=== PATIENT | female | born 1980 | race Caucasian/White ===

== ENCOUNTER 2018-12-17 05:35 | Inpatient (IN) ==
--- OUTSIDE RECORDS SUMMARY | 2018-12-17 05:37 | External Medical Summary | Continuity of Care Document ---
:1980 Author Name Nik Contreras Address Unavailable Unavailable , Care Team Providers Name Role Phone Clara DO Unavailable [email or web address] Unavailable Unavailable Unavailable Unavailable Unavailable Problems Active medical history not documented Allergies and Adverse Reactions Allergy history not documented Medications Medications not documented Procedures Procedures not documented Immunizations Immunizations not documented Plan of Treatment Planned Encounters Appointment; Arturo Elizabeth DO Start: 19-Dec-2018 10:20 Request Planned Observations Planned Goals not documented Results No Known Results Results not documented Encounters Appointment; Arturo Elizabeth DO 19-Dec-2018 10:20 Encounter Diagnosis: Problem not documented
[2018-12-17] MEDS ORDERED: HYDROmorphone INJ 1 MG/ML SYRINGE IV STA (05:48)
[2018-12-17] MEDS ORDERED: ONDANSETRON INJ 2 MG/ML 2 ML VIAL IV STA ×2 (05:48→07:20)
[2018-12-17] MEDS ORDERED: SODIUM CHLORIDE 0.9% 1000ML 1,000 ML IV ONE (05:48)
[2018-12-17 06:07] LABS: Basophils # (auto) 0.01 K/uL (0-0.2); Basophils % (auto) 0.1 %; Eosinophils # (auto) 0.02 K/uL (0-0.5); Eosinophils % (auto) 0.1 %; Hematocrit (blood only) 42.9 % (37-47); Hemoglobin 15.4 g/dL (12.0-16.0); Immature Granulocytes # (auto) 0.04 K/uL (0.00-0.02); Immature Granulocytes % (auto) 0.2 %; Lymphocytes # (auto) 1.44 K/uL (1.2-3.4); Lymphocytes % (auto) 8.8 %; Mean Corpuscular Hgb Conc 35.9 g/dL (32-36); Mean Corpuscular Volume 87.9 fL (80-100); Mean Platelet Volume 11.2 fL (7.4-10.4); Monocytes # (auto) 1.52 K/uL (0.11-0.59); Monocytes % (auto) 9.3 %; Neutrophils # (auto) 13.31 K/uL (1.4-6.5); Neutrophils % (auto) 81.5 %; Platelet Count 201 K/uL (130-400); RDW Coefficient of Variation 12.7 % (11.5-14.5); RDW Standard Deviation 40.7 fL (36.4-46.3); Red Blood Count 4.88 M/uL (4.2-5.4); White Blood Count 16.34 K/uL (4.8-10.8)
[2018-12-17 06:27] LABS: Albumin Level 3.8 gm/dl (3.4-5.0); BUN Creatinine Ratio 9.7 (10-20); Bilirubin,Total 1.4 mg/dl (0.2-1); Calcium 9.2 mg/dl (8.5-10.1); Potassium 3.9 mmol/L (3.5-5.1); Total Protein 8.1 gm/dl (6.4-8.2)
[2018-12-17 06:41] LABS: Creatinine Clr Calc Pharmacy 97.9 ml/min; Est GFR (African American) 95.9; Est GFR (Non-African American) 82.8
[2018-12-17] MEDS ORDERED: cefOXitin 2,000 MG/60 ML BAG IV STA (07:03)
[2018-12-17] MEDS ORDERED: HYDROmorphone INJ 1 MG/ML SYRINGE IV PRN (07:04)
--- NOTE | 2018-12-17 07:09 | Ultrasound Report ---
US gallbladder CLINICAL HISTORY: RUQ pain, known gallstone at neck, worsening COMPARISON STUDY: CT of the abdomen and pelvis December 12, 2013. Right upper quadrant ultrasound November 302018. FINDINGS: Fatty infiltration of the liver is noted. There is no biliary ductal dilatation. A nonmobil e gallstone within the gallbladder neck is noted. Moderate to marked gallbladder wall thickening with edema has developed since exam of December 15, 2018. The gallbladder is moderately distended. Echogenic focus with comet tail artifact within the gallbladder wall suggests adenomyomatosis. Given pain medic ation administration, sonographic Benavidez sign could not be assessed. The pancreas is appeared by over lying bowel gas. IMPRESSION: 1. Cholelithiasis with interval development of moderate to marked gallbladder wall thickening since u ltrasound of December 15, 2017. The findings are highly suggestive of acute cholecystitis. 2. No biliary ductal dilatation. 3. Fatty liver. Electronically signed by: John Castro M.D. 12/17/2018 7:08 AM
--- NOTE | 2018-12-17 07:26 | Emergency Department Note ---
Entered by Rajiv Bee acting as a scribe for ED Provider Note Name: Aditya Lyon Age: 38, female Arrives Via: Walk in Informant: Patient CC: Abdominal pain HPI: The patient is a 38 year old female who presents to the emergency department with complaints of constant abdominal pain beginning two days ago. The patient states that she was in the emergency department two days ago for similar symptoms. She notes that she had a stone stuck in her gallbladder at that time. She reports that her symptoms have not resolved. The patient states that her pain is worse in her upper abdomen, but she notes that she has some mild pain in her lower abdomen. She also complains of diaphoresis and vomiting. She denies any leg swelling, urinary symptoms, CP, and SOB. She reports that she has not had any previous surgeries and she states that she does not have a family history of stomach ulcers and pancreas problems. She notes that she does not smoke cigarettes, drink alcohol, and use drugs. ROS: See above HPI for pertinent positives & negatives. A total of 10 systems reviewed and were otherwise negative. Past Medical History: Cholelithiasis, kidney stone Past Surgical History: None Family History: No significant family history Social History: , lives with family, does not use drugs, does not smoke cigarettes, does not drink alcohol Home Medications: Mirena, Zofran, Oxycodone Allergies: None Physical: Vitals: BP 216/130 H, Pulse 87, Resp 16, Temp 98.6 F, O2 Sat 96 Exam: GENERAL: Patient is uncomfortable appearing and in moderate distress. EYES: No scleral icterus, unremarkable pupils. ENT: Mucous membranes moist, no nasal congestion. NECK: No masses appreciated, no meningismus, trachea is midline. RESPIRATORY: No dyspnea. Clear to auscultation and equal bilaterally. No wheeze, no rhonchi. Breathing comfortably. CARDIOVASCULAR: Regular rate and rhythm. No murmurs, rubs, gallops appreciated. GASTROINTESTINAL: Abdomen soft, no peritonitis. Bowel sounds positive. No masses appreciated. Acute epigastric RUQ tenderness to palpation. BACK: No midline tenderness, no CVA tenderness EXTREMITIES: Normal motion all extremities, no cyanosis, no edema. NEUROLOGIC: Alert and oriented, no acute motor or sensory deficits, no focal weakness, cranial nerves grossly intact. SKIN: No rash, no jaundice, no diaphoresis. ED Course: Prior Medical Record, Triage/Nursing Notes, Medications, Allergies reviewed by Me 0544: The patient was evaluated in room B2. A complete history and physical exam was performed. 0618: I reevaluated and updated the patient. She is starting to feel better. 0655: General surgery was paged. 0700: Upon reevaluation, the patient is stable. I discussed the findings and the treatment plan with the patient. She expresses agreement and understanding. I discussed the patients case with the PA recreation program coordinator for General Surgery who accepts the patient for consult for Dr. Schwartz. Vital Signs: reviewed and remarkable for HTN Labs: Reviewed and remarkable for wbc elevation, bili elevation Interventions: Saline Lock, Dilaudid 1mg IV, Zofran 4mg IV, NSS bolus, NPO, Mefoxin 2 gm IV Imaging: Radiology results as stated below per my review and the radiologist's interpretation: US gallbladder FINDINGS: Fatty infiltration of the liver is noted. There is no biliary ductal dilatation. A nonmobile gallstone within the gallbladder neck is noted. Moderate to marked gallbladder wall thickening with edema has developed since exam of December 15, 2018. The gallbladder is moderately distended. Echogenic focus with co met tail artifact within the gallbladder wall suggests adenomyomatosis. Given pain medication administration, sonographic Benavidez sign could not be assessed. The pancreas is appeared by overlying bowel gas. IMPRESSION: 1. Cholelithiasis with interval development of moderate to marked gallbladder wall thickening since ultrasound of December 15, 2017. The findings are highly suggestive of acute cholecystitis. 2. No biliary ductal dilatation. 3. Fatty liver. Electronically signed by: John Castro M.D. 12/17/2018 7:08 AM Consults: 0700: I discussed the patients case with the PA recreation program coordinator for General Surgery who accepts the patient for consult for Dr. Schwartz. Blood pressure: Elevated - Referred to PCP Disposition: Taken to OR by Gen Surg Differentials: Differential: Appendicitis, Diverticulitis, PUD/Gastritis, Biliary Pathology, UTI, Pyelonephritis, Renal Colic, Bowel Obstruction, Aortic Pathology, Acute Coronary Syndrome, amongst other pathologies entertained. Medical Decision Makin yr old female with acute cholecystitis secondary to obstructing neck stone. Moderate wbc/bili bump without significant hepatic function elevation. Not septic and otherwise looking well. Feeling much better after pain medications. Fluids given IV and kept NPO. Gen Surg on board. Impression: Acute cholecystitis Harman Stark MD The scribe's documentation has been prepared under my direction and personally reviewed by me in its entirety. I confirm that the note above accurately reflects all work, treatment, procedures, and medical decision making performed by me. Impression & Plan Acute cholecystitis Past Med/Surg History Medical History Right upper quadrant abdominal pain (Acute) Cholelithiasis (Acute) Abdominal pain (Acute) Kidney stone (Acute) Surgical History No pertinent past surgical history Family History Other No significant family history Social History Preferred Language: Faroese Communication Ability: Effective Beliefs That Will Affect Care: None marital status: Current Living Situation: Spouse and Family current occupational status: employed Feels Safe at Home: Yes Smoking Status: Never smoker Second Hand Exposure: No Hx Alcohol Use: No Hx Substance Use: No Results & Data Vital Signs Vital Signs - 24 hr 12/17/18 05:39 12/17/18 06:02 12/17/18 06:21 Temperature 37.0 C Temperature Source Oral Sepsis Recent Fever Within 48 Hours No Sepsis Action Taken by Nursing No Action Required Pulse Rate 102 H Pulse Rate [Right Finger] 87 89 Pulse Rhythm [Right Finger] Regular Pulse Strength [Right Finger] Normal Respiratory Rate 18 16 16 Respiratory Effort / Characteristics Non-Labored Spontaneous Non-Labored Respiratory Depth Normal Normal Respiratory Pattern Regular Regular Blood Pressure 166/110 H Blood Pressure [Right Arm] 216/130 H 169/112 H Blood Pressure Mean 128 Blood Pressure Mean [Right Arm] 158 131 Blood Pressure Position Sitting Blood Pressure Position [Right Arm] Lying Pulse Oximetry 96 96 93 Oxygen Delivery Method Room Air Room Air Room Air Home Medications Current Medication List: was personally reviewed by me Laboratory Data Attestation: I reviewed the patient's lab results. Result diagrams: 12/20/18 06:40 12/20/18 06:40 Lab Results 12/17/18 12/17/18 Range/Units 05:54 05:54 WBC 16.34 H (4.8-10.8) K/uL RBC 4.88 (4.2-5.4) M/uL Hgb 15.4 (12.0-16.0) g/dL Hct 42.9 (37-47) % MCV 87.9 (80-100) fL MCH 31.6 (25-34) pg MCHC 35.9 (32-36) g/dL RDW Std Deviation 40.7 (36.4-46.3) fL RDW Coeff of Maral 12.7 (11.5-14.5) % Plt Count 201 (130-400) K/uL MPV 11.2 H (7.4-10.4) fL Immature Gran % (Auto) 0.2 % Neut % (Auto) 81.5 % Lymph % (Auto) 8.8 % [place] % (Auto) 9.3 % Eos % (Auto) 0.1 % Baso % (Auto) 0.1 % Immature Gran # (Auto) 0.04 H (0.00-0.02) K/uL Neut # (Auto) 13.31 H (1.4-6.5) K/uL Lymph # (Auto) 1.44 (1.2-3.4) K/uL [place] # (Auto) 1.52 H (0.11-0.59) K/uL Eos # (Auto) 0.02 (0-0.5) K/uL Baso # (Auto) 0.01 (0-0.2) K/uL Sodium 134 L (136-145) mmol/L Potassium 3.9 (3.5-5.1) mmol/L Chloride 100 (98-107) mmol/L Carbon Dioxide 25 (21-32) mmol/L Anion Gap 9.0 (3-11) BUN 9 (7-18) mg/dl Creatinine 0.88 (0.6-1.2) mg/dl Est Cr Clr Drug Dosing 97.9 ml/min Est GFR ( Amer) 95.9 Est GFR (Non-Af Amer) 82.8 BUN/Creatinine Ratio 9.7 L (10-20) Glucose 135 H (70-99) mg/dl Calcium 9.2 (8.5-10.1) mg/dl Total Bilirubin 1.4 H D (0.2-1) mg/dl Direct Bilirubin (0-0.2) mg/dl AST 24 (15-37) U/L ALT 35 (12-78) U/L Alkaline Phosphatase 62 (45-117) U/L Total Protein 8.1 (6.4-8.2) gm/dl Albumin 3.8 (3.4-5.0) gm/dl Lipase 180 (73-393) U/L Specimen Hemolysis Administered Medications Discontinued Medications Bacitracin (Bacitracin) Confirm Administered Dose 45 appln .ROUTE .[employer] ONE Stop: 12/18/18 06:55 Last Admin: 12/18/18 10:51 Dose: 45 appln Documented by: [id number] Bupivacaine HCl (Marcaine 0.5% Mpf) Confirm Administered Dose 30 ml .ROUTE .[employer] ONE Stop: 12/18/18 06:56 Last Admin: 12/18/18 10:52 Dose: 20 ml Documented by: [id number] Cefazolin Sodium (Ancef 2000mg) Confirm Administered Dose 2,000 mg IV .[employer] ONE Stop: 12/18/18 06:57 Last Admin: 12/18/18 11:50 Dose: Not Given Documented by: [id number] Docusate Sodium (Colace) 100 mg PO BID VIC Stop: 01/18/19 10:14 Last Admin: 12/20/18 08:06 Dose: 100 mg Documented by: [id number] Admin: 12/19/18 20:33 Dose: 100 mg Documented by: [id number] Admin: 12/19/18 11:02 Dose: 100 mg Documented by: [id number] Fentanyl Citrate (Fentanyl Citrate) 50 mcg IV Q5M PRN PRN Reason: PACU Use Only-Pain Stop: 12/18/18 12:47 Last Admin: 12/18/18 11:22 Dose: 50 mcg Documented by: [id number] Admin: 12/18/18 11:17 Dose: 50 mcg Documented by: [id number] Hydralazine HCl (Hydralazine Hcl) 10 mg IV NOW STA Stop: 12/17/18 13:39 Last Admin: 12/17/18 13:59 Dose: 10 mg Documented by: [id number] Hydromorphone HCl (Dilaudid) 1 mg IV NOW STA Stop: 12/17/18 05:49 Last Admin: 12/17/18 06:01 Dose: 1 mg Documented by: [id number] Hydromorphone HCl (Dilaudid) 1 mg IV Q15M PRN PRN Reason: Pain Stop: 12/31/18 07:03 Last Admin: 12/17/18 07:28 Dose: 1 mg Documented by: [id number] Sodium Chloride (Nss 1000ml) 1,000 mls @ 999 mls/hr IV .Q1H1M ONE Stop: 12/17/18 06:48 Last Infusion: 12/17/18 07:04 Dose: 0 mls/hr Documented by: [id number] Admin: 12/17/18 06:01 Dose: 999 mls/hr Documented by: [id number] Cefoxitin Sodium (Mefoxin) 2,000 mg in 60 mls @ 100 mls/hr IV NOW [facility] Stop: 12/17/18 07:38 Last Infusion: 12/17/18 08:01 Dose: 0 mls/hr Documented by: [id number] Admin: 12/17/18 07:28 Dose: 100 mls/hr Documented by: [id number] Cefoxitin Sodium 2,000 mg/ (Dextrose) 60 mls @ 100 mls/hr IV Q6H [facility] Stop: 12/27/18 13:59 Last Admin: 12/18/18 11:50 Dose: Not Given Documented by: [id number] Infusion: 12/18/18 02:18 Dose: 0 mls/hr Documented by: [id number] Admin: 12/18/18 01:31 Dose: 100 mls/hr Documented by: [id number] Infusion: 12/17/18 21:50 Dose: 0 mls/hr Documented by: [id number] Admin: 12/17/18 20:51 Dose: 100 mls/hr Documented by: [id number] Infusion: 12/17/18 16:27 Dose: 0 mls/hr Documented by: [id number] Admin: 12/17/18 14:05 Dose: 100 mls/hr Documented by: [id number] Sodium Chloride (Nss 1000ml) 1,000 mls @ 80 mls/hr IV .[id number] [facility] Stop: 01/16/19 08:14 Last Infusion: 12/17/18 20:52 Dose: 0 mls/hr Documented by: [id number] Admin: 12/17/18 18:36 Dose: 80 mls/hr Documented by: [id number] Infusion: 12/17/18 17:56 Dose: 125 mls/hr Documented by: [id number] Admin: 12/17/18 09:56 Dose: 125 mls/hr Documented by: [id number] Dextrose/Sodium Chloride (D5w And Nss) 1,000 mls @ 80 mls/hr IV .[id number] VIC Stop: 01/16/19 20:29 Last Infusion: 12/19/18 09:08 Dose: 0 mls/hr Documented by: [id number] Admin: 12/18/18 23:31 Dose: 80 mls/hr Documented by: [id number] Infusion: 12/18/18 23:31 Dose: 80 mls/hr Documented by: [id number] Infusion: 12/18/18 22:43 Dose: 80 mls/hr Documented by: [id number] Admin: 12/18/18 12:08 Dose: 80 mls/hr Documented by: [id number] Infusion: 12/18/18 09:22 Dose: 80 mls/hr Documented by: [id number] Admin: 12/17/18 20:52 Dose: 80 mls/hr Documented by: [id number] Cefazolin Sodium (Ancef 2000mg) 2,000 mg in 15 mls @ 3.75 mls/min IV PREOP ONE Stop: 12/18/18 06:53 Last Admin: 12/18/18 07:14 Dose: 3.75 mls/min Documented by: [id number] Piperacillin Sod/Tazobactam (Sod 4.5 gm/ Dextrose) 120 mls @ 200 mls/hr IV TODA Y@1330 ONE; Protocol Stop: 12/18/18 14:05 Last Infusion: 12/18/18 16:35 Dose: 0 mls/hr Documented by: [id number] Admin: 12/18/18 14:36 Dose: 200 mls/hr Documented by: [id number] Piperacillin Sod/Tazobactam (Sod 4.5 gm/ Dextrose) 120 mls @ 30 mls/hr IV Q8H [facility]; Protocol Stop: 12/28/18 19:59 Last Infusion: 12/20/18 08:14 Dose: 0 mls/hr Documented by: [id number] Admin: 12/20/18 04:11 Dose: 30 mls/hr Documented by: [id number] Infusion: 12/20/18 00:38 Dose: 0 mls/hr Documented by: [id number] Admin: 12/19/18 20:32 Dose: 30 mls/hr Documented by: [id number] Infusion: 12/19/18 16:15 Dose: 0 mls/hr Documented by: [id number] Admin: 12/19/18 12:29 Dose: 30 mls/hr Documented by: [id number] Infusion: 12/19/18 08:16 Dose: 0 mls/hr Documented by: [id number] Admin: 12/19/18 04:13 Dose: 30 mls/hr Documented by: [id number] Infusion: 12/19/18 00:23 Dose: 0 mls/hr Documented by: [id number] Admin: 12/18/18 20:21 Dose: 30 mls/hr Documented by: [id number] Iothalamate Meglumine ([place] 60%) Confirm Administered Dose 50 ml .ROUTE .STK- MED ONE Stop: 12/18/18 06:56 Last Admin: 12/18/18 10:51 Dose: 20 ml Documented by: [id number] Lidocaine HCl (Xylocaine 1% (Local)) Confirm Administered Dose 20 ml .ROUTE .STK-MED ONE Stop: 12/18/18 06:56 Last Admin: 12/18/18 10:53 Dose: 20 ml Documented by: [id number] Metoprolol Tartrate (Lopressor) 25 mg PO BID [facility] Stop: 01/16/19 14:59 Last Admin: 12/17/18 16:51 Dose: 25 mg Documented by: [id number] Metoprolol Tartrate (Lopressor) 50 mg PO Q8H [facility] Stop: 01/16/19 20:59 Last Admin: 12/18/18 12:49 Dose: 50 mg Documented by: [id number] Admin: 12/18/18 05:19 Dose: 50 mg Documented by: [id number] Admin: 12/17/18 21:10 Dose: 50 mg Documented by: [id number] Metoprolol Tartrate (Lopressor) 50 mg PO Q12H [facility] Stop: 01/17/19 20:59 Last Admin: 12/19/18 08:54 Dose: 50 mg Documented by: [id number] Admin: 12/18/18 20:22 Dose: 50 mg Documented by: [id number] Metoprolol Tartrate (Lopressor) 25 mg PO ONCE ONE Stop: 12/19/18 12:46 Last Admin: 12/19/18 13:21 Dose: 25 mg Documented by: [id number] Metoprolol Tartrate (Lopressor) 75 mg PO Q12H [facility] Stop: 01/18/19 20:59 Last Admin: 12/20/18 08:07 Dose: 75 mg Documented by: [id number] Admin: 12/19/18 20:56 Dose: 75 mg Documented by: [id number] Morphine Sulfate (Morphine Sulfate) 2 mg IV Q3H PRN PRN Reason: MODERATE Pain (Scale 4,5,6) Stop: 12/31/18 08:10 Last Admin: 12/19/18 20:46 Dose: 2 mg Documented by: [id number] Admin: 12/18/18 18:56 Dose: 2 mg Documented by: [id number] Admin: 12/18/18 12:48 Dose: 2 mg Documented by: [id number] Morphine Sulfate (Morphine Sulfate) 4 mg IV Q3H PRN PRN Reason: SEVERE Pain (Scale 7,8,9,10) Stop: 12/31/18 08:10 Last Admin: 12/17/18 09:50 Dose: 4 mg Documented by: [id number] Ondansetron HCl (Zofran) 4 mg IV NOW STA Stop: 12/17/18 05:49 Last Admin: 12/17/18 06:01 Dose: 4 mg Documented by: [id number] Ondansetron HCl (Zofran) 4 mg IV NOW STA Stop: 12/17/18 07:21 Last Admin: 12/17/18 07:26 Dose: 4 mg Documented by: [id number] Ondansetron HCl (Zofran) 4 mg IV Q4H PRN PRN Reason: Nausea And Vomiting Stop: 01/16/19 08:10 Last Admin: 12/17/18 21:09 Dose: 4 mg Documented by: [id number] Admin: 12/17/18 16:42 Dose: 4 mg Documented by: [id number] Admin: 12/17/18 09:48 Dose: 4 mg Documented by: [id number] Oxycodone/Acetaminophen (Percocet 5mg/325mg) 1 tab PO Q4H PRN PRN Reason: MODERATE Pain (Scale 4,5,6) Stop: 12/31/18 08:10 Last Admin: 12/20/18 09:47 Dose: 1 tab Documented by: [id number] Oxycodone/Acetaminophen (Percocet 5mg/325mg) 2 tab PO Q4H PRN PRN Reason: SEVERE Pain (Scale 7,8,9,10) Stop: 12/31/18 08:10 Last Admin: 12/20/18 04:10 Dose: 2 tab Documented by: [id number] Admin: 12/19/18 20:04 Dose: 2 tab Documented by: [id number] Admin: 12/19/18 14:40 Dose: 2 tab Documented by: [id number] Admin: 12/19/18 08:52 Dose: 2 tab Documented by: [id number] Admin: 12/19/18 03:02 Dose: 2 tab Documented by: [id number] Admin: 12/18/18 21:10 Dose: 2 tab Documented by: [id number] Admin: 12/18/18 16:44 Dose: 2 tab Documented by: [id number] Admin: 12/17/18 23:51 Dose: 2 tab Documented by: [id number] Admin: 12/17/18 17:50 Dose: 2 tab Documented by: [id number] Potassium Chloride (Klor-Con M20) 40 meq PO NOW STA Stop: 12/19/18 08:28 Last Admin: 12/19/18 08:54 Dose: 40 meq Documented by: [id number] Potassium Chloride (Klor-Con M20) 40 meq PO NOW STA Stop: 12/20/18 08:13 Last Admin: 12/20/18 09:21 Dose: 40 meq Documented by: [id number] Scopolamine (Transderm-Scop) Confirm Administered Dose 1.5 mg .ROUTE .STK-MED ONE Stop: 12/18/18 06:57 Last Admin: 12/18/18 06:59 Dose: 1.5 mg Documented by: [id number] Triamcinolone Acetonide (Aristocort 0.1%) 1 appln EXT TID VIC Stop: 01/17/19 13:59 Last Admin: 12/20/18 08:07 Dose: 1 appln Documented by: [id number] Admin: 12/19/18 20:33 Dose: 1 appln Documented by: [id number] Admin: 12/19/18 13:21 Dose: 1 appln Documented by: [id number] Admin: 12/19/18 08:54 Dose: 1 appln Documented by: [id number] Admin: 12/18/18 20:22 Dose: 1 appln Documented by: [id number] Admin: 12/18/18 14:36 Dose: Not Given Documented by: [id number] Discharge Plan Visit Data *Final* Discharge Date/Time: 12/17/18 09:14 Chief Complaint: Abdominal Pain Stated Complaint: STOMACH PAIN,VOMITING,GALLBLADDER ED Provider: Harman Stark Discharge Problem: Acute cholecystitis Patient Disposition: Admitted As Inpatient Discharge Instructions Interventions: ED Discharge Assessment Last Done: 12/17/18 09:14 The scribe's documentation has been prepared under my direction and personally reviewed by me in its entirety. I confirm that the note above accurately reflects all work, treatment, procedures, and medical decision making performed by me.
[2018-12-17] MEDS ORDERED: MoRPHine SULFATE 4 MG/ML 1 ML CARP\\VIAL IV PRN (08:11)
[2018-12-17] MEDS ORDERED: OXYCODONE/ACETAMINOPHEN 5mg/325mg TAB PO PRN (08:11)
[2018-12-17] MEDS ORDERED: MoRPHine SULFATE 2 MG/ML CARP IV PRN (08:11)
[2018-12-17] MEDS ORDERED: ACETAMINOPHEN 325 MG TAB PO PRN (08:11)
--- NOTE | 2018-12-17 08:40 | History & Physical Report ---
Date of Service December 17, 2018 Assessment & Plan (1) Acute calculous cholecystitis: 38 year-old female with history of 4 days of abdominal pain with associated nausea and vomiting (x1) who presented to ER on 12/15/18 and was diagnosed with gallstone in gallbladder neck however no signs of acute cholecystitis at the time. She presented to ER today with increasing pain. Repeat US showing nonmobile stone in neck of gallbladder with wall thickening and edema concerning for acute cholecystitis. Leukocytosis of 16K. T bili elevated at 1.4. Rest of LFTS wnl. Plan: Admit patient to med/surg floor and start IV fluids, IV Cefoxitin 2 gm q 6 hours, IV Zofran prn nausea, IV Morphine prn pain, SCDs, activity as tolerated, and kept NPO. Will repeat labs in morning, if rise in t. bili will need GI consult for possible ERCP. Will tentatively schedule for laparoscopic cholecystectomy tomorrow with Dr. Schwartz. Discussed laparoscopic procedure and risks including bleeding, infection, injury to common bile duct, bile leak, injury to surrounding organs tissues, cardiopulmonary complications including blood clots. Will gain informed consent prior to procedure Dr. Schwartz has seen and examined pt, agrees with above. History of Present Illness Chief Complaint: abdominal pain with nausea Primary Care Provider: NO PCP Aditya is a pleasant 38 year-old female who originally presented to emergency department on 12/15/18 with abdominal pain , nausea, and vomiting that started two days prior. States she missed work two days last week because of the pain. Originally thought she had gas pains but pain persisted. She had an ultrasound on 12/15/18 which showed 3 cm stone at gallbladder neck but no other signs of acute cholecystitis. She was given pain medication and tried to get through for scheduling outpatient cholecystectomy. States in the last two days pain increased. Appetite low. Feeling bloated. Urine output dark yellow. Denies of any fever, chills, sweats, chest pain, shortness of breath, difficulty breathing, diarrhea, black/tarry stools, blood in stools, blood in urine. ER work-up included labs which showed leukocytosis of 16.34K, elevated t. bili at 1.4 rest of LFTS wnl. US showing 3 cm gallbladder neck stone which is nonmobile with gallbladder wall thickening and pericholecystic fluid. She has had some IV Dilaudid for pain. Pain was 9/10 on presentation and is feeling much better now after pain medication. Allergies Allergy/AdvReac Type Severity Reaction Status Date / Time No Known Allergies Allergy Unknown Verified 12/17/18 05:51 Home Medications Home Medications Medication Instructions Recorded Confirmed Type levonorgestrel [Mirena] 20 mcg INTRAUTERINE ONCE 12/15/18 12/17/18 History ondansetron HCl [Zofran] 4 mg PO Q6H PRN #14 tab 12/15/18 12/17/18 Rx oxycodone 5 mg PO Q6H PRN #14 tab 12/15/18 12/17/18 Rx Past Med/Surg History Social History Preferred Language: [place] Communication Ability: Effective Hand Molder Required: No Beliefs That Will Affect Care: None marital status: Current Living Situation: Spouse and Family current occupational status: employed Other Information That Helps Us Care for You: No Feels Safe at Home: Yes Safety Concerns: Feels Safe At This Time Smoking Status: Never smoker Do You Dip or Chew Tobacco: No Second Hand Exposure: No Tobacco Cessation Education Requested by Patient: No Hx Alcohol Use: No Hx Substance Use: No Review of Systems Review of Systems: All systems reviewed & are unremarkable except as noted in HPI & below Physical Exam Constitutional: WD/WN, vitals as above + obese; no acute distress and not ill appearing Respiratory: normal respiratory effort, lungs clear to auscultation Cardiovascular: Rate/Rhythm: regular rhythm and + tachycardic Heart Sounds: normal S1 and normal S2; no murmur Gastrointestinal (Abdomen): Inspection/Auscultation: abdomen normal to inspection; abdomen not distended Percussion/Palpation: + abdomen tender (RUQ) and abdomen soft; no guarding and abdomen not rigid Skin: + rash (patches of erythema of the abdomen and the elbows) Psychiatric: A+Ox3, euthymic affect Results & Data Vital Signs (Past 12 Hours) Vital Signs Temp Pulse Pulse Resp BP BP Pulse Ox 12/17/18 06:21 89 16 169/112 H 93 12/17/18 06:02 87 16 216/130 H 96 12/17/18 05:39 37.0 C 102 H 18 166/110 H 96 Laboratory Results 12/17/18 12/17/18 Range/Units 05:54 05:54 WBC 16.34 H (4.8-10.8) K/uL RBC 4.88 (4.2-5.4) M/uL Hgb 15.4 (12.0-16.0) g/dL Hct 42.9 (37-47) % MCV 87.9 (80-100) fL MCH 31.6 (25-34) pg MCHC 35.9 (32-36) g/dL RDW Std Deviation 40.7 (36.4-46.3) fL RDW Coeff of Maral 12.7 (11.5-14.5) % Plt Count 201 (130-400) K/uL MPV 11.2 H (7.4-10.4) fL Immature Gran % (Auto) 0.2 % Neut % (Auto) 81.5 % Lymph % (Auto) 8.8 % [place] % (Auto) 9.3 % Eos % (Auto) 0.1 % Baso % (Auto) 0.1 % Immature Gran # (Auto) 0.04 H (0.00-0.02) K/uL Neut # (Auto) 13.31 H (1.4-6.5) K/uL Lymph # (Auto) 1.44 (1.2-3.4) K/uL [place] # (Auto) 1.52 H (0.11-0.59) K/uL Eos # (Auto) 0.02 (0-0.5) K/uL Baso # (Auto) 0.01 (0-0.2) K/uL Sodium 134 L (136-145) mmol/L Potassium 3.9 (3.5-5.1) mmol/L Chloride 100 (98-107) mmol/L Carbon Dioxide 25 (21-32) mmol/L Anion Gap 9.0 (3-11) BUN 9 (7-18) mg/dl Creatinine 0.88 (0.6-1.2) mg/dl Est Cr Clr Drug Dosing 97.9 ml/min Est GFR ( Amer) 95.9 Est GFR (Non-Af Amer) 82.8 BUN/Creatinine Ratio 9.7 L (10-20) Glucose 135 H (70-99) mg/dl Calcium 9.2 (8.5-10.1) mg/dl Total Bilirubin 1.4 H D (0.2-1) mg/dl Direct Bilirubin (0-0.2) mg/dl AST 24 (15-37) U/L ALT 35 (12-78) U/L Alkaline Phosphatase 62 (45-117) U/L Total Protein 8.1 (6.4-8.2) gm/dl Albumin 3.8 (3.4-5.0) gm/dl Lipase 180 (73-393) U/L Specimen Hemolysis Diagnostic Findings US gallbladder CLINICAL HISTORY: RUQ pain, known gallstone at neck, worsening COMPARISON STUDY: CT of the abdomen and pelvis December 12, 2013. Right upper quadrant ultrasound December 15, 2018. FINDINGS: Fatty infiltration of the liver is noted. There is no biliary ductal dilatation. A nonmobile gallstone within the gallbladder neck is noted. Moderate to marked gallbladder wall thickening with edema has developed since exam of J une 2018. The gallbladder is moderately distended. Echogenic focus with comet tail artifact within the gallbladder wall suggests adenomyomatosis. Given pain medication administration, sonographic Benavidez sign could not be assessed. The pancreas is appeared by overlying bowel gas. IMPRESSION: 1. Cholelithiasis with interval development of moderate to marked gallbladder wall thickening since ultrasound of December 15, 2017. The findings are highly suggestive of acute cholecystitis. 2. No biliary ductal dilatation. 3. Fatty liver. Code Status & VTE Plan VTE Prophylaxis Plan VTE Prophylaxis will be ordered: Yes
[2018-12-17] MEDS: ONDANSETRON INJ 2 MG/ML 2 ML VIAL IV PRN ×3 (09:48→21:09)
[2018-12-17] MEDS: SODIUM CHLORIDE 0.9% 1000ML 1,000 ML IV SCH ×2 (09:56→18:36)
[2018-12-17] MEDS ORDERED: HydrALAZINE HCL 20 MG/ML VIAL IV STA (13:38)
[2018-12-17] MEDS: cefOXitin 2,000 MG in DEXTROSE 5% 50 ML IV SCH ×2 (14:05→20:51)
[2018-12-17] MEDS ORDERED: PROCHLORPERAZINE 10 MG in SYRINGE 8 ML IV PRN (14:42)
[2018-12-17] MEDS ORDERED: METOPROLOL TARTRATE 25 MG TAB PO SCH (15:00)
--- NOTE | 2018-12-17 16:01 | Hospitalist Consultation ---
Date of Consultation December 17, 2018 Assessment & Plan (1) Acute calculous cholecystitis: - Admitted to gen surg for lap yuri on 12/18/18. - Pain & nausea management per primary team. - Cefoxitin 2 gm IV q6hr for empiric coverage. - NPO except meds; IV fluids at 80 cc/hr. (2) Elevated blood pressure reading: - BP has been elevated since admission -- ranging from 160's - 200's. - May have underlying component of HTN (has not been evaluated by PCP in 5 years) vs. partially pain induced. - Received Hydralazine 10 mg IV with mild improvement. - Start Metoprolol 25 mg BID; consider titrating dose. - Will need f/u with PCP after discharge to determine if pt. needs to start alf anti-hypertensive agent. (3) Leukocytosis: - Related to acute cholecystitis. - Monitor CBC qAM. (4) Elevated bilirubin: - In setting of acute cholecystitis. - Monitor qAM. (5) Fatty liver: - Encourage healthy diet, exercise. (6) Obesity: - BMI 42.5 -- encourage weight loss and healthy diet. (7) DVT prophylaxis: - SCDs; holding pharmacologic ppx for procedure. Dispo: Med/surg for lap yuri; will continue to follow, please call with any questions. Supervising Physician Co-Signing Physician Notes Attending Consult Note & Attestation - Pt seen/examined, chart reviewed, care plan d/w DESHAWN Weeks. I agree w/ the guerrero components of her documentation. 38yo female who presented with acute cholecystitis. Noted to have marked BP elevations at presentation. No formal dx of HTN in the past. Father has HTN. Prior to my arrival Ms Weeks & I discussed her BPs - metoprolol PO started and BPs indeed improved. PMH, PSH, allergies, meds, sochx, famhx, ros - reviewed gen- mildly uncomfortable due to pain; morbidly obese, ill-appearing mouth - MM dry heart - RRR, s1 s2 lungs - CTA b/l abd - soft, tender RUQ, BS+ ext - no edema skin - psoriatic plaques A/P: 1. acute cholecystitis - continue IV antibiotics; gen surg to perform lap yuri tomorrow. 2. elevated BP w/o dx of HTN - some of the BP elevation may be from pain, but suspect undiagnosed baseline essential HTN. Cont metoprolol - titrate to keep SBP about 150-160 tonight. 3. psoriasis - steroid ointment. Feliciano Martell MD History of Present Illness Reason for Consultation: Medical Management Attending Physician: Colin Schwartz MD History of Present Illness Ms. Coffman is a 38 year old female with no significant past medical history who presented with acute cholecystitis. Pt. has not been evaluated by a PCP in >5 years and does not have a documented medical history. Currently, patient complains of epigastric and RUQ abd pain along with nausea. She cannot take PO meds and has had limited PO intake due to nausea. Is having regular BMs. BP was elevated, SBP >200 at one point. She received Hydralazine 10 mg IV with some improvement. Pt. denies h/o HTN. Will start Metoprolol 25 mg BID -- may have underlying component of HTN vs. partially pain induced. Allergies Allergy/AdvReac Type Severity Reaction Status Date / Time No Known Allergies Allergy Unknown Verified 12/17/18 05:51 Home Medications Home Medications Medication Instructions Recorded Confirmed Type Mirena 20 mcg INTRAUTERINE ONCE 12/15/18 12/17/18 History ondansetron HCl [Zofran] 4 mg PO Q6H PRN #14 tab 12/15/18 12/17/18 Rx ciprofloxacin HCl [Cipro] 500 mg PO BID #14 tab 12/19/18 Rx metronidazole [Flagyl] 500 mg PO TID #21 tab 12/19/18 Rx oxycodone-acetaminophen 1 tab PO Q4H PRN #18 tab 12/19/18 Rx metoprolol tartrate 75 mg PO BID #30 tab 12/20/18 Rx Patient History Medical History Right upper quadrant abdominal pain (Acute) Cholelithiasis (Acute) Abdominal pain (Acute) Kidney stone (Acute) Surgical History No pertinent past surgical history Family History Other No significant family history Social History Preferred Language: Romanian Communication Ability: Effective Beliefs That Will Affect Care: None marital status: Current Living Situation: Spouse and Family current occupational status: employed Feels Safe at Home: Yes Smoking Status: Never smoker Second Hand Exposure: No Hx Alcohol Use: No Hx Substance Use: No Review of Systems Review of Systems: All systems reviewed & are unremarkable except as noted in HPI & below Constitutional: + fatigue, + weakness and + anorexia; no fever and no chills Respiratory: no cough, no dyspnea, no dyspnea on exertion and no wheezing Cardiovascular: no chest pain, no palpitations, no lightheadedness and no edema Gastrointestinal: + abdominal pain and + nausea; no vomiting, no constipation and no diarrhea/loose stools Genitourinary: no difficulty urinating Musculoskeletal: no back pain and no joint pain Integumentary: no non-healing lesions Neurologic: + headache(s) Hematologic / Lymphatic: no easy bleeding and no easy bruising Allergy / Immunological: no rash Physical Exam Physical Exam: General: Resting comfortably in no apparent distress HEENT: NC/AT; PERRLA with EOMI; [place] conjunctiva, MMM. No erythema of posterior pharynx Neck: Supple and nontender Cardiac: RRR Lungs: CTA bilaterally Abdomen: Bowel normoactive X 4; Tender to light palpation in the RUQ. Extremities: Warm. No edema present Neuro: No focal weakness Skin: No rash Results & Data Vital Signs (Past 12 Hours) Vital Signs Temp Pulse Pulse Resp BP BP Pulse Ox 12/17/18 14:35 176/93 H 12/17/18 13:45 178/100 H 12/17/18 13:12 189/114 H 12/17/18 09:20 36.9 C 85 18 176/95 H 96 12/17/18 09:14 74 16 166/108 H 93 12/17/18 08:05 74 16 175/111 H 91 12/17/18 06:21 89 16 169/112 H 93 12/17/18 06:02 87 16 216/130 H 96 12/17/18 05:39 37.0 C 102 H 18 166/110 H 96 Laboratory Results 12/17/18 12/17/18 Range/Units 05:54 05:54 WBC 16.34 H (4.8-10.8) K/uL RBC 4.88 (4.2-5.4) M/uL Hgb 15.4 (12.0-16.0) g/dL Hct 42.9 (37-47) % MCV 87.9 (80-100) fL MCH 31.6 (25-34) pg MCHC 35.9 (32-36) g/dL RDW Std Deviation 40.7 (36.4-46.3) fL RDW Coeff of Maral 12.7 (11.5-14.5) % Plt Count 201 (130-400) K/uL MPV 11.2 H (7.4-10.4) fL Immature Gran % (Auto) 0.2 % Neut % (Auto) 81.5 % Lymph % (Auto) 8.8 % [place] % (Auto) 9.3 % Eos % (Auto) 0.1 % Baso % (Auto) 0.1 % Immature Gran # (Auto) 0.04 H (0.00-0.02) K/uL Neut # (Auto) 13.31 H (1.4-6.5) K/uL Lymph # (Auto) 1.44 (1.2-3.4) K/uL [place] # (Auto) 1.52 H (0.11-0.59) K/uL Eos # (Auto) 0.02 (0-0.5) K/uL Baso # (Auto) 0.01 (0-0.2) K/uL Sodium 134 L (136-145) mmol/L Potassium 3.9 (3.5-5.1) mmol/L Chloride 100 (98-107) mmol/L Carbon Dioxide 25 (21-32) mmol/L Anion Gap 9.0 (3-11) BUN 9 (7-18) mg/dl Creatinine 0.88 (0.6-1.2) mg/dl Est Cr Clr Drug Dosing 97.9 ml/min Est GFR ( Amer) 95.9 Est GFR (Non-Af Amer) 82.8 BUN/Creatinine Ratio 9.7 L (10-20) Glucose 135 H (70-99) mg/dl Calcium 9.2 (8.5-10.1) mg/dl Total Bilirubin 1.4 H D (0.2-1) mg/dl Direct Bilirubin (0-0.2) mg/dl AST 24 (15-37) U/L ALT 35 (12-78) U/L Alkaline Phosphatase 62 (45-117) U/L Total Protein 8.1 (6.4-8.2) gm/dl Albumin 3.8 (3.4-5.0) gm/dl Lipase 180 (73-393) U/L Specimen Hemolysis PG Care Time/CCT Total # of Minutes Spent Total Time Spent with Patient: Total time spent is greater than 50% in coordination of care (as documented) at patient's floor/unit and/or counseling patient:
[2018-12-17] MEDS: OXYCODONE/ACETAMINOPHEN 5mg/325mg TAB PO PRN ×2 (17:50→23:51)
[2018-12-17] MEDS ORDERED: HydrALAZINE HCL 20 MG/ML VIAL IV PRN (18:12)
[2018-12-17] MEDS ORDERED: METOPROLOL TARTRATE 50 MG TAB PO SCH ×2 (18:45)
[2018-12-17 20:06] LABS: Appearance Urine Clear (Clear); Bacteria Urine Automated Negative (Negative); Blood Urine Negative (Negative); Epithelial Cell Urine Auto >30 /lpf (0-5); Glucose Urine UA Negative (Negative); Leukocyte Esterase Urine Trace (Negative); Nitrite Urine Negative (Negative); Protein Urine 1+ (Negative); Specific Gravity Urine 1.026 (1.000-1.030); Urobilinogen Urine Negative (Negative); pH Urine 6.5 (4.5-7.5)
[2018-12-17 20:08] LABS: Bilirubin Urine Negative (Negative); Color Urine Dark Yellow; Ictotest Urine Negative (Negative)
[2018-12-17 20:12] LABS: Ketones Urine 4+ (Negative)
[2018-12-17 20:20] LABS: Pregnancy Test, Urine Negative (Negative)
[2018-12-17] MEDS: D5W AND NSS 1,000 ML IV SCH (20:52)
[2018-12-17] MEDS: METOPROLOL TARTRATE 50 MG TAB PO SCH (21:10)
[2018-12-18] MEDS: cefOXitin 2,000 MG in DEXTROSE 5% 50 ML IV SCH ×2 (01:31→11:50)
[2018-12-18] MEDS: METOPROLOL TARTRATE 50 MG TAB PO SCH ×3 (05:19→20:22)
[2018-12-18 05:26] LABS: Basophils # (auto) 0.01 K/uL (0-0.2); Basophils % (auto) 0.1 %; Hematocrit (blood only) 40.1 % (37-47); Immature Granulocytes # (auto) 0.03 K/uL (0.00-0.02); Immature Granulocytes % (auto) 0.3 %; Lymphocytes % (auto) 14.5 %; Mean Corpuscular Volume 88.5 fL (80-100); Mean Platelet Volume 11.2 fL (7.4-10.4); Monocytes # (auto) 0.87 K/uL (0.11-0.59); Monocytes % (auto) 8.4 %; Neutrophils # (auto) 7.94 K/uL (1.4-6.5); Neutrophils % (auto) 76.7 %; Platelet Count 184 K/uL (130-400); RDW Coefficient of Variation 12.6 % (11.5-14.5); RDW Standard Deviation 40.5 fL (36.4-46.3); Red Blood Count 4.53 M/uL (4.2-5.4); White Blood Count 10.35 K/uL (4.8-10.8)
[2018-12-18 05:30] LABS: Mean Corpuscular Hgb Conc 34.9 g/dL (32-36)
[2018-12-18 05:45] LABS: Albumin Level 3.2 gm/dl (3.4-5.0); BUN Creatinine Ratio 8.3 (10-20); Bilirubin Direct 0.6 mg/dl (0-0.2); Calcium 8.9 mg/dl (8.5-10.1); Creatinine Clr Calc Pharmacy 109.1 ml/min; Est GFR (African American) 109.3; Est GFR (Non-African American) 94.3; Potassium 3.5 mmol/L (3.5-5.1)
[2018-12-18 05:48] LABS: Bilirubin,Total 1.4 mg/dl (0.2-1); Total Protein 7.4 gm/dl (6.4-8.2)
--- NOTE | 2018-12-18 06:29 | Surgery Progress Note ---
Date of Service pt feels better, less abdominal pain, no nausea, no vomiting, no fever, December 18, 2018 Assessment & Plan (1) Acute calculous cholecystitis: 38 year-old female with history of 4 days of abdominal pain with associated nausea and vomiting (x1) who presented to ER on 12/15/18 and was diagnosed with gallstone in gallbladder neck however no signs of acute cholecystitis at the time. She presented to ER today with increasing pain. Repeat US showing nonmobile stone in neck of gallbladder with wall thickening and edema concerning for acute cholecystitis. Leukocytosis of 16K. T bili elevated at 1.4. Rest of LFTS wnl. Plan: Admit patient to med/surg floor and start IV fluids, IV Cefoxitin 2 gm q 6 hours, IV Zofran prn nausea, IV Morphine prn pain, SCDs, activity as tolerated, and kept NPO. Will repeat labs in morning, if rise in t. bili will need GI consult for possible ERCP. Will tentatively schedule for laparoscopic cholecystectomy tomorrow with Dr. Schwartz. Discussed laparoscopic procedure and risks including bleeding, infection, injury to common bile duct, bile leak, injury to surrounding organs tissues, cardiopulmonary complications including blood clots. Will gain informed consent prior to procedure Dr. Schwartz has seen and examined pt, agrees with above. D/W benefits, risks and alternatives of the laparosocpic cholecystectomy, possible open or cholangiogram, the risks - infection, bleeding, injury CBD, bowel, may need ERCP, , pt and her mother understood, they agree with the surgery, I answered all questions, Physical Exam Constitutional: WD/WN, vitals as above well developed and well nourished Neck: trachea midline, no thyromegaly Respiratory: normal respiratory effort, lungs clear to auscultation normal respiratory effort Cardiovascular: RRR, no murmur, no edema Rate/Rhythm: regular rate and regular rhythm Gastrointestinal (Abdomen): Percussion/Palpation: + abdomen tender and abdomen soft tenderness at RUQ, no rebound pain, BS + Musculoskeletal: no cyanosis or clubbing, extremities motor strength 5/5 Neurologic: patellar DTR's 2+ bilat, sensation intact Psychiatric: Orientation: alert and oriented x 3 Results & Data Vital Signs (Past 12 Hours) Vital Signs Temp Pulse Pulse Resp BP Pulse Ox 12/18/18 05:16 36.9 C 82 16 148/79 H 96 12/17/18 23:40 37.0 C 76 18 152/87 H 95 12/17/18 21:00 76 154/89 H 12/17/18 19:01 89 160/84 H Laboratory Results Abnormal lab results 12/17/18 12/18/18 12/18/18 Range/Units 19:48 05:12 05:12 MPV 11.2 H (7.4-10.4) fL Immature Gran # (Auto) 0.03 H (0.00-0.02) K/uL Neut # (Auto) 7.94 H (1.4-6.5) K/uL [place] # (Auto) 0.87 H (0.11-0.59) K/uL BUN/Creatinine Ratio 8.3 L (10-20) Glucose 110 H (70-99) mg/dl Total Bilirubin 1.4 H (0.2-1) mg/dl Direct Bilirubin 0.6 H (0-0.2) mg/dl AST 205 H (15-37) U/L ALT 182 H (12-78) U/L Albumin 3.2 L (3.4-5.0) gm/dl Urine Protein 1+ H (Negative) Urine Ketones 4+ H (Negative) Ur Leukocyte Esterase Trace H (Negative) Urine WBC (Auto) 5-10 H (0-5) /hpf Urine RBC (Auto) 5-10 H (0-4) /hpf U Hyaline Cast (Auto) 5-10 H (0-5) /lpf U Epithel Cells (Auto) >30 H (0-5) /lpf Diagnostic Findings US gallbladder CLINICAL HISTORY: RUQ pain, known gallstone at neck, worsening COMPARISON STUDY: CT of the abdomen and pelvis December 12, 2013. Right upper quadrant ultrasound December 15, 2018. FINDINGS: Fatty infiltration of the liver is noted. There is no biliary ductal dilatation. A nonmobile gallstone within the gallbladder neck is noted. Moderate to marked gallbladder wall thickening with edema has developed since exam of December 15, 2018. The gallbladder is moderately distended. Echogenic focus with comet tail artifact within the gallbladder wall suggests adenomyomatosis. Given pain medication administration, sonographic Benavidez sign could not be assessed. The pancreas is appeared by overlying bowel gas. IMPRESSION: 1. Cholelithiasis with interval development of moderate to marked gallbladder wall thickening since ultrasound of December 15, 2017. The findings are highly suggestive of acute cholecystitis. 2. No biliary ductal dilatation. 3. Fatty liver.
--- NOTE | 2018-12-18 06:39 | Anesthesiology Consultation ---
Date of Service December 18, 2018 Assessment & Plan (1) Encounter for pre-operative examination: Chart Review Chart Review: Acceptable Risk for Surgery and Patient NOT seen in Pre Admission Testing Consults Requested none ASA ASA3 Proposed Anesthesia Anesthesia Type: General Risk / Benefits Reviewed With: PT / POA / Parent / Guardian, Accepts Plan and In formed Consent Obtained History Surgery Operation Date: 12/18/18 07:15 Proposed Procedures p Laparoscopic Cholecystectomy Possible Cholangiogram - Colin Schwartz MD Height/Weight Height: 5 ft 2 in Weight: 105.5 kg Allergies Allergy/AdvReac Type Severity Reaction Status Date / Time No Known Allergies Allergy Unknown Verified 12/17/18 05:51 Medications Home Medications Medication Instructions Recorded Confirmed Last Taken levonorgestrel [Mirena] 20 mcg INTRAUTERINE ONCE 12/15/18 12/17/18 Unknown ondansetron HCl [Zofran] 4 mg PO Q6H PRN #14 tab 12/15/18 12/17/18 Unknown oxycodone 5 mg PO Q6H PRN #14 tab 12/15/18 12/17/18 Unknown Active Medications Generic Name Dose Route Start Last Admin Trade Name Freq PRN Reason Stop Dose Admin Cefoxitin Sodium 2,000 mg/ 60 mls @ 100 mls/hr 12/17/18 14:00 12/18/18 02:18 Dextrose IV 12/27/18 13:59 Infused Q6H VIC Infusion Dextrose/Sodium Chloride 1,000 mls @ 80 mls/hr 12/17/18 20:30 12/17/18 20:52 D5w And Nss IV 01/16/19 20:29 80 mls/hr .[id number] VIC Administration Metoprolol Tartrate 50 mg 12/17/18 21:00 12/18/18 05:19 Lopressor PO 01/16/19 20:59 50 mg Q8H VIC Administration Morphine Sulfate 4 mg 12/17/18 08:11 12/17/18 09:50 Morphine Sulfate IV 12/31/18 08:10 4 mg Q3H PRN Administration SEVERE Pain (Scale 7,8,9,10) Ondansetron HCl 4 mg 12/17/18 08:11 12/17/18 21:09 Zofran IV 01/16/19 08:10 4 mg Q4H PRN Administration Nausea And Vomiting Oxycodone/Acetaminophen 2 tab 12/17/18 08:11 12/17/18 23:51 Percocet 5mg/325mg PO 12/31/18 08:10 2 tab Q4H PRN Administration SEVERE Pain (Scale 7,8,9,10) NPO Date Last Intake of Fluids: 12/17/18 Time Last Intake of Fluids: 05:30 Last Intake of Fluids Comment: Sip of water with pills Date Last Intake of Solids: 12/14/18 Time Last Intake of Solids: 20:00 Past Medical History Medical History Right upper quadrant abdominal pain (Acute) Cholelithiasis (Acute) Abdominal pain (Acute) Kidney stone (Acute) Obesity Exercise / Class Metabolic Activity II 4-5 Yardwork/Stairs/Walk up hill Negative for chest pain or shortness of breath. Past Family History Family History Other No significant family history Past Surgical History Surgical History No pertinent past surgical history Past Anesthesia History No Hx of Anesthesia Complications (No prior anesthetic) and No Family Hx of Anesthesia Complications History of PONV No Hx of PONV and Hx of Motion Sickness Social History Smoking Status: Never smoker Do You Dip or Chew Tobacco: No Hx Alcohol Use: No Hx Substance Use: No substance use type: does not use Review of Systems positive for nausea Physical Exam Vital Signs Last Vital Signs Temp 36.9 C 12/18/18 05:16 Pulse 82 12/18/18 05:16 Resp 16 12/18/18 05:16 BP 148/79 H 12/18/18 05:16 Pulse Ox 96 12/18/18 05:16 Constitutional + morbidly obese ENMT Mouth: no TMJ abnormality and oral opening not small Thyromental Distance: > or= 3.5 Finger Breadths Mallampati Class: III Mouth / Teeth: 1. Partial Neck normal visual inspection, + short neck and + thick neck; neck extension not limited Respiratory normal respiratory effort Auscultation: lungs clear to auscultation bilaterally Cardiovascular Rate/Rhythm: regular rate and regular rhythm Heart Sounds: no murmur Neurologic moves all extremities Motor/Sensory: no sensory deficit Psychiatric Orientation: alert and oriented x 3 Testing Laboratory Results 12/18/18 05:12 12/18/18 05:12 Urine Color Dark Yellow 12/17/18 19:48 Urine Appearance Clear (Clear) 12/17/18 19:48 Urine pH 6.5 (4.5-7.5) 12/17/18 19:48 Ur Specific [place] 1.026 (1.000-1.030) 12/17/18 19:48 Urine Protein 1+ (Negative) H 12/17/18 19:48 Urine Glucose (UA) Negative (Negative) 12/17/18 19:48 Urine Ketones 4+ (Negative) H 12/17/18 19:48 Urine Nitrite Negative (Negative) 12/17/18 19:48 Ur Leukocyte Esterase Trace (Negative) H 12/17/18 19:48 Urine WBC (Auto) 5-10 /hpf (0-5) H 12/17/18 19:48 Urine RBC (Auto) 5-10 /hpf (0-4) H 12/17/18 19:48 U Hyaline Cast (Auto) 5-10 /lpf (0-5) H 12/17/18 19:48 U Epithel Cells (Auto) >30 /lpf (0-5) H 12/17/18 19:48 Urine Bacteria (Auto) Negative (Negative) 12/17/18 19:48 Urine Test Negative (Negative) 12/17/18 19:50 12/17/18 19:50 Urine Test Negative Electrocardiogram Date: 12/15/18 Findings: + NSR @ (74) Sinus rhythm with wenckebach conduction Otherwise normal ECG No previous ECGs available
--- NOTE | 2018-12-18 06:48 | History & Physical Bridge Note ---
Date of Service December 18, 2018 History & Physical Bridge Note I have examined the patient, reviewed the History & Physical and in the interval since the performance of the History & Physical I have noted the following changes of clinical significance: no changes noted
[2018-12-18] MEDS ORDERED: CEFAZOLIN 2000MG 2,000 MG/15 ML SYR IV ONE (06:50)
[2018-12-18] MEDS ORDERED: BACITRACIN OINT 15 GM TUBE ONE (06:54)
[2018-12-18] MEDS ORDERED: CONRAY 60% 50 ML VIAL ONE (06:55)
[2018-12-18] MEDS ORDERED: LIDOCAINE HCL 1% 20 ML VIAL ONE (06:55)
[2018-12-18] MEDS ORDERED: BUPIVACAINE 0.5 % 5 MG/1 ML MPF 30ML VIAL ONE (06:55)
[2018-12-18] MEDS ORDERED: CEFAZOLIN 2,000 MG/15 ML IV PUSH IV ONE (06:56)
[2018-12-18] MEDS ORDERED: SCOPOLAMINE 1.5 MG TDSY ONE (06:56)
[2018-12-18] MEDS ORDERED: LIDOCAINE HCL 2% 2 ML VIAL/AMP(20MG/ML) INFIL ONE (06:59)
[2018-12-18] MEDS ORDERED: MIDAZOLAM HCL 1 MG/ML 2ML VIAL ONE (06:59)
[2018-12-18] MEDS ORDERED: ONDANSETRON INJ 2 MG/ML 2 ML VIAL ONE (06:59)
[2018-12-18] MEDS ORDERED: PROPOFOL IV EMULSION 10 MG/ML 20 ML VIAL IV ONE (06:59)
[2018-12-18] MEDS ORDERED: GLYCOPYRROLATE 0.2 MG/ML VIAL ONE ×2 (06:59→10:53)
[2018-12-18] MEDS ORDERED: DEXAMETHASONE SOD INJ 4 MG/ML VIAL ONE (06:59)
[2018-12-18] MEDS ORDERED: fentaNYL citrate 100 MCG/2 ML VIAL ONE (06:59)
[2018-12-18] MEDS ORDERED: ROCURONIUM BROMIDE 10 MG/ML 5 ML VIAL ONE ×3 (06:59→10:53)
[2018-12-18] MEDS ORDERED: NEOSTIGMINE METHYLSULFATE 5 MG/5 ML SYR ONE (06:59)
[2018-12-18] MEDS ORDERED: HYDROmorphone INJ 2 MG/ML SYR/VIAL ONE (07:09)
[2018-12-18] MEDS ORDERED: ePHEDrine sulfate 50 MG/ML AMP IV PRN (07:46)
[2018-12-18] MEDS ORDERED: HYDROmorphone INJ 1 MG/ML SYRINGE IV PRN (07:46)
[2018-12-18] MEDS ORDERED: PROMETHAZINE HCL 12.5 MG in SODIUM CHLORIDE 0.9% 50 ML IV PRN (07:46)
[2018-12-18] MEDS ORDERED: ATROPINE SULFATE 0.1 MG/ML 10ML SYR IV PRN (07:46)
[2018-12-18] MEDS ORDERED: ONDANSETRON INJ 2 MG/ML 2 ML VIAL IV PRN (07:46)
--- NOTE | 2018-12-18 08:43 | Fluoroscopy Report ---
[place] cholangiogram OR HISTORY: Post cholecystectomy. FLUOROSCOPY TIME: 6 seconds. FINDINGS: Fluoroscopy was provided for an intraoperative cholangiogram status post cholecystectomy. C ontrast was injected through the cystic duct remnant. There is complete extravasation of contrast. Th ere is no significant contrast within the biliary ductal system IMPRESSION: Fluoroscopy provided for an intraoperative cholangiogram status post cholecystectomy. No ndiagnostic images due to contrast extravasation The above report was generated using voice recognition software. It may contain grammatical, syntax or spelling errors. Electronically signed by: Ronal Cardona M.D. 12/18/2018 8:41 AM
[2018-12-18] MEDS ORDERED: CISATRACURIUM BESYLATE IV SOLN 2 MG/ML 10 ML VIAL IV ONE (10:28)
[2018-12-18] MEDS ORDERED: KETOROLAC 30 MG/ML VIAL ONE (10:44)
--- NOTE | 2018-12-18 10:49 | Post Operative Brief Note ---
Immediate Post Op Note v1 Date of Surgery December 18, 2018 Pre & Post Diagnosis Operation Date: 12/18/18 07:15 Pre-Op Diagnosis: Acute Cholecystitis, Cholelithiasis Post-Op Diagnosis: Acute Cholecystitis, Cholelithiasis Procedure Operation Date: 12/18/18 07:15 Actual Procedures p Laparoscopic Subtotal Cholecystectomy with Cholangiogram(Not Applicable) - Colin Schwartz MD Surgeon Colin Schwartz MD Brick Pointer DESHAWN Carlson Estimated Blood Loss 100 Findings Consistent with Post-Op Diagnosis significant inflammation on gallbladder wall, with gangrene Fluids 1500ml Specimens gallbladder Drains Bob-Segura Drain (10 flat ) Anesthesia Type General Complications none Disposition Accompanied Patient To Recovery: Yes Disposition: Recovery Room Overlapping Procedure I was immediately available: during the entire case.
[2018-12-18] MEDS ORDERED: PIPERACILL/TAZOBAC CONSULT ACTIVE PRN (11:05)
[2018-12-18] MEDS ORDERED: PIPERACILLIN/TAZOBACTAM 3.375 GM in DEXTROSE 5% 100 ML IV SCH (11:15)
[2018-12-18] MEDS: fentaNYL citrate 100 MCG/2 ML VIAL IV PRN ×2 (11:17→11:22)
--- NOTE | 2018-12-18 11:42 | Anesthesiology Progress Note ---
Date of Service December 18, 2018 Anesthesia Post Procedure Vital Signs Vital Signs: Temp Pulse Pulse Pulse Resp BP BP 12/18/18 11:30 86 13 136/83 12/18/18 11:20 77 13 147/77 H 12/18/18 11:10 37.1 C 89 19 152/81 H 12/18/18 06:51 37 C 87 20 182/103 H 12/18/18 05:16 36.9 C 82 16 148/79 H 12/17/18 23:40 37.0 C 76 18 152/87 H 12/17/18 21:00 76 154/89 H 12/17/18 19:01 89 160/84 H 12/17/18 17:49 97 H 187/105 H 12/17/18 16:37 185/95 H 12/17/18 16:05 37.2 C 91 H 17 172/103 H 12/17/18 14:35 176/93 H 12/17/18 13:45 178/100 H 12/17/18 13:12 189/114 H Pulse Ox 12/18/18 11:30 97 12/18/18 11:20 97 12/18/18 11:10 97 12/18/18 06:51 95 12/18/18 05:16 96 12/17/18 23:40 95 12/17/18 21:00 12/17/18 19:01 12/17/18 17:49 12/17/18 16:37 12/17/18 16:05 95 12/17/18 14:35 12/17/18 13:45 12/17/18 13:12 Pain Intensity Right Upper Abdomen: Pain Intensity: 3 Head: Pain Intensity: 9 Transfer of Care Handoff Completed per policy Notes Mental Status: alert / awake / arousable and participated in evaluation Patient Amnestic to Procedure: Yes Nausea / Vomiting: adequately controlled Pain: adequately controlled Airway Patency, RR, SpO2: stable & adequate Hydration State: stable & adequate Anesthetic Complications: no major complications apparent and Pt Satisfied with anesthetic care
[2018-12-18] MEDS ORDERED: ONDANSETRON 4 MG TAB PO PRN ×2 (12:07)
[2018-12-18] MEDS ORDERED: OXYCODONE HCL IR 5 MG TAB (IMMEDIATE RELEASE) PO PRN ×2 (12:07)
[2018-12-18] MEDS ORDERED: NON-FORMULARY MEDICATION (Levonorgestrel [Mirena] 20 MCG) IU SCH (12:07)
[2018-12-18] MEDS: D5W AND NSS 1,000 ML IV SCH ×2 (12:08→23:31)
--- NOTE | 2018-12-18 12:36 | Hospitalist Progress Note ---
Date of Service December 18, 2018 Assessment & Plan (1) Acute calculous cholecystitis: - Admitted to gen surg; s/p lap yuri this morning. - Pain & nausea management per primary team. - Zosyn IV -- will need to complete course of PO abx after discharge. - CLD post op; IV fluids at 80 cc/hr. (2) Elevated blood pressure reading: - BP has been elevated, now slightly improved after starting beta maya. - May have underlying component of HTN (has not been evaluated by PCP in 5 years), less likely pain induced. - Started Metoprolol tartrate 50 mg q8hr. - Will need to establish care with PCP at discharge. (3) Leukocytosis: - Related to acute cholecystitis, now resolved. - Monitor CBC qAM. (4) Elevated bilirubin: - In setting of acute cholecystitis. - Monitor qAM. (5) Fatty liver: - Encourage healthy diet, exercise. (6) Obesity: - BMI 42.5 -- encourage weight loss and healthy diet. (7) DVT prophylaxis: - SCDs; holding pharmacologic ppx for procedure. Dispo: Will continue to follow, please call with any questions. Supervising Physician Co-Signing Physician Notes Attending Attestation - Chart reviewed, care plan d/w DESHAWN Weeks. I agree w/ the guerrero components of her documentation. BPs improved s/p institution of beta maya and titration of such. s/p lap yuri today. Continue to monitor BPs. Felicinao Martell MD Subjective Pt. is lethargic post op but otherwise doing well. Denies acute abd pain, N/V. BP is slightly improved after receiving Metoprolol 50 mg q8hr. Will need to establish care with PCP for further work up/management of newly diagnosed HTN. Review of Systems Review of Systems: All systems reviewed & are unremarkable except as noted in HPI & below Constitutional: + fatigue and + weakness; no fever, no chills and no anorexia Respiratory: no cough, no dyspnea and no dyspnea on exertion Cardiovascular: no chest pain, no palpitations and no edema Gastrointestinal: no abdominal pain, no nausea and no constipation Genitourinary: no difficulty urinating Musculoskeletal: no back pain and no joint pain Integumentary: no non-healing lesions Physical Exam Physical Exam: General: Resting comfortably in no apparent distress HEENT: NC/AT; PERRLA with EOMI; [place] conjunctiva, MMM. No erythema of posterior pharynx Neck: Supple and nontender Cardiac: RRR Lungs: CTA bilaterally Abdomen: Bowel normoactive X 4; nontender to light palpation. Incision sites with dressing in place. Extremities: Warm. No edema present Neuro: No focal weakness Skin: No rash Results & Data Vital Signs (Past 12 Hours) Vital Signs Temp Pulse Pulse Resp BP BP Pulse Ox 12/18/18 11:50 36.8 C 76 14 141/81 H 98 12/18/18 11:40 73 12 132/81 96 12/18/18 11:30 86 13 136/83 97 12/18/18 11:20 77 13 147/77 H 97 12/18/18 11:10 37.1 C 89 19 152/81 H 97 12/18/18 06:51 37 C 87 20 182/103 H 95 12/18/18 05:16 36.9 C 82 16 148/79 H 96 Laboratory Results 12/18/18 12/18/18 12/17/18 Range/Units 05:12 05:12 19:50 WBC 10.35 (4.8-10.8) K/uL RBC 4.53 (4.2-5.4) M/uL Hgb 14.0 (12.0-16.0) g/dL Hct 40.1 (37-47) % MCV 88.5 (80-100) fL MCH 30.9 (25-34) pg MCHC 34.9 (32-36) g/dL RDW Std Deviation 40.5 (36.4-46.3) fL RDW Coeff of Maral 12.6 (11.5-14.5) % Plt Count 184 (130-400) K/uL MPV 11.2 H (7.4-10.4) fL Immature Gran % (Auto) 0.3 % Neut % (Auto) 76.7 % Lymph % (Auto) 14.5 % [place] % (Auto) 8.4 % Eos % (Auto) 0.0 % Baso % (Auto) 0.1 % Immature Gran # (Auto) 0.03 H (0.00-0.02) K/uL Neut # (Auto) 7.94 H (1.4-6.5) K/uL Lymph # (Auto) 1.50 (1.2-3.4) K/uL [place] # (Auto) 0.87 H (0.11-0.59) K/uL Eos # (Auto) 0.00 (0-0.5) K/uL Baso # (Auto) 0.01 (0-0.2) K/uL Sodium 137 (136-145) mmol/L Potassium 3.5 (3.5-5.1) mmol/L Chloride 103 (98-107) mmol/L Carbon Dioxide 30 (21-32) mmol/L Anion Gap 4.0 (3-11) BUN 7 (7-18) mg/dl Creatinine 0.79 (0.6-1.2) mg/dl Est Cr Clr Drug Dosing 109.1 ml/min Est GFR ( Amer) 109.3 Est GFR (Non-Af Amer) 94.3 BUN/Creatinine Ratio 8.3 L (10-20) Glucose 110 H (70-99) mg/dl Calcium 8.9 (8.5-10.1) mg/dl Total Bilirubin 1.4 H (0.2-1) mg/dl Direct Bilirubin 0.6 H (0-0.2) mg/dl AST 205 H (15-37) U/L ALT 182 H (12-78) U/L Alkaline Phosphatase 88 (45-117) U/L Total Protein 7.4 (6.4-8.2) gm/dl Albumin 3.2 L (3.4-5.0) gm/dl Urine Color Urine Appearance (Clear) Urine pH (4.5-7.5) Ur Specific [place] (1.000-1.030) Urine Protein (Negative) Urine Glucose (UA) (Negative) Urine Ketones (Negative) Urine Blood (Negative) Urine Nitrite (Negative) Urine Bilirubin (Negative) Urine Urobilinogen (Negative) Ur Leukocyte Esterase (Negative) Urine WBC (Auto) (0-5) /hpf Urine RBC (Auto) (0-4) /hpf U Hyaline Cast (Auto) (0-5) /lpf U Epithel Cells (Auto) (0-5) /lpf Urine Bacteria (Auto) (Negative) Ur Renal Epithelial Cell Urine Test Negative (Negative) 12/17/18 Range/Units 19:48 WBC (4.8-10.8) K/uL RBC (4.2-5.4) M/uL Hgb (12.0-16.0) g/dL Hct (37-47) % MCV (80-100) fL MCH (25-34) pg MCHC (32-36) g/dL RDW Std Deviation (36.4-46.3) fL RDW Coeff of Maral (11.5-14.5) % Plt Count (130-400) K/uL MPV (7.4-10.4) fL Immature Gran % (Auto) % Neut % (Auto) % Lymph % (Auto) % [place] % (Auto) % Eos % (Auto) % Baso % (Auto) % Immature Gran # (Auto) (0.00-0.02) K/uL Neut # (Auto) (1.4-6.5) K/uL Lymph # (Auto) (1.2-3.4) K/uL [place] # (Auto) (0.11-0.59) K/uL Eos # (Auto) (0-0.5) K/uL Baso # (Auto) (0-0.2) K/uL Sodium (136-145) mmol/L Potassium (3.5-5.1) mmol/L Chloride (98-107) mmol/L Carbon Dioxide (21-32) mmol/L Anion Gap (3-11) BUN (7-18) mg/dl Creatinine (0.6-1.2) mg/dl Est Cr Clr Drug Dosing ml/min Est GFR ( Amer) Est GFR (Non-Af Amer) BUN/Creatinine Ratio (10-20) Glucose (70-99) mg/dl Calcium (8.5-10.1) mg/dl Total Bilirubin (0.2-1) mg/dl Direct Bilirubin (0-0.2) mg/dl AST (15-37) U/L ALT (12-78) U/L Alkaline Phosphatase (45-117) U/L Total Protein (6.4-8.2) gm/dl Albumin (3.4-5.0) gm/dl Urine Color Dark Yellow Urine Appearance Clear (Clear) Urine pH 6.5 (4.5-7.5) Ur Specific [place] 1.026 (1.000-1.030) Urine Protein 1+ H (Negative) Urine Glucose (UA) Negative (Negative) Urine Ketones 4+ H (Negative) Urine Blood Negative (Negative) Urine Nitrite Negative (Negative) Urine Bilirubin Negative (Negative) Urine Urobilinogen Negative (Negative) Ur Leukocyte Esterase Trace H (Negative) Urine WBC (Auto) 5-10 H (0-5) /hpf Urine RBC (Auto) 5-10 H (0-4) /hpf U Hyaline Cast (Auto) 5-10 H (0-5) /lpf U Epithel Cells (Auto) >30 H (0-5) /lpf Urine Bacteria (Auto) Negative (Negative) Ur Renal Epithelial Cell Not Reportable Urine Test (Negative) PG Care Time/CCT Total # of Minutes Spent Total Time Spent with Patient: Total time spent is greater than 50% in coordination of care (as documented) at patient's floor/unit and/or counseling patient:
[2018-12-18] MEDS: MoRPHine SULFATE 2 MG/ML CARP IV PRN ×2 (12:48→18:56)
[2018-12-18] MEDS ORDERED: PIPERACILLIN/TAZOBACTAM 4.5 GM in DEXTROSE 5% 100 ML IV ONE (13:30)
[2018-12-18] MEDS ORDERED: TRIAMCINOLONE ACET 0.1% OINT 454 GM EXT SCH (14:00)
--- NOTE | 2018-12-18 14:17 | Operative Report ---
DATE OF OPERATION: 12/18/2018 PREOPERATIVE DIAGNOSES: Acute cholecystitis, cholelithiasis. POSTOPERATIVE DIAGNOSIS: Acute cholecystitis, cholelithiasis. OPERATION: Laparoscopy, subtotal cholecystectomy, intraoperative cholangiogram, ASIM drainage. SURGEON: Colin Schwartz MD. ANESTHESIA: General. ESTIMATED BLOOD LOSS: About 100 mL. IN SCHOOL SUSPENSION COORDINATOR: Cathleen Pruitt PA-C. FINDINGS: Significant inflammation on the gallbladder wall with gangrene and pus inside the gallbladder cavity. Large gallstone, size of about 2 x 2 cm. COMPLICATIONS: None. INDICATIONS FOR THE PROCEDURE: This is a 38-year-old female who was admitted to the hospital for right upper quadrant pain with ultrasound diagnoses of acute cholecystitis, cholelithiasis. The patient is required to do laparoscopic cholecystectomy, possible open, possible cholangiogram. I did talk to the patient and the patient's mom about the benefit, risk, alternate procedure. I indicated the risks may include but not limited to such as bleeding, infection, injury to common bile duct, injury to the bowel, bile leak, may need ERCP, and even . The patient understands. The patient signed informed consent and I answered all questions. DETAILS OF PROCEDURE: We brought the patient to the OR, put the patient in the supine position. The patient received SCD on bilateral legs to prevent DVT. Also, the patient received 2 g Ancef IV for prophylactic antibiotics. The patient received general anesthesia without difficulty. The abdomen was prepped and draped in routine sterile fashion. After time out, I injected local anesthesia just above the umbilicus by using 1% lidocaine mixed with 0.5% Marcaine. I then made a small incision just above the umbilicus, opened fascia and opened peritoneum, and under direct vision, put a Blaire trocar in, connected to CO2 to create pneumoperitoneum at a flow rate of 6 liters per minute, pressure not more than 14 mmHg. Once we got a nice pneumoperitoneum, we put the camera in, looked around the abdomen, it showed normal finding on the liver. However, the gallbladder showed significant inflammation, edema, wall thickening and there are some yellow fluid around the gallbladder and around the liver confirming the diagnosis of acute cholecystitis. Then, we put another two 5 mm trocars in the right upper quadrant and one 12 trocar in the epigastric area. Based on the gallbladder's significant distention, we used a large needle to decompress the gallbladder first. Then, we used Juan Daniel clamp, clamped half way the gallbladder, connected the catheter to the gallbladder cavity, injected contrast to do the intraoperative cholangiogram. There was some contrast going to the common bile duct and no contrast going to small bowel and also patient has a large gallstone blocking the cystic duct area. Based on the significant inflammation on the gallbladder, it was difficult to determine the cystic duct location. At this moment, we decided to do the top-down technique to take down gallbladder and based on the gallbladder's significant inflammation, once we opened the gallbladder cavity, there was some pus coming out from the gallbladder cavity. We suctioned out and then also we found the patient has one large gallstone 2 x 2 cm. We removed the gallstone and we kept dissecting the gallbladder around the gallbladder wall and near the cystic duct, we used Endoloop to block it near the cystic duct. Then we removed most of the gallbladder using the harmonic, left a tiny piece of the gallbladder intact to not injure the common bile duct and hemostasis obtained, no bile leak and no active bleeding. Then, we decided to put 1 ASIM drainage near the gallbladder and also we used 2-0 Vicryl to close the gallbladder opening interruptedly and rechecked and no bile leak and no active bleeding from the liver bed and also from the remaining piece of the gallbladder. Then, we used the catch bag and removed the gallbladder and the gallstones. Then, we reinserted the Blaire trocar in, connected to CO2 to create pneumoperitoneum, again looked around the abdomen, no bile leak and no active bleeding from the remaining piece of the gallbladder. Then, we put one 10 mm ASIM drainage near the remaining piece of the gallbladder wall. Then, we removed all trocars under direct vision. No active bleeding from the trocar sites. Pneumoperitoneum was released. I closed the umbilical incision, fascial layer by using #1 Vicryl [id number] x3 and closed subcutaneous layer by using 2-0 Vicryl continuous running, closed skin by using 4-0 Vicryl continuous running, closed the epigastric area incision fascia by using #1 Vicryl [id number] x2, closed subcutaneous layer by using 2-0 Vicryl interruptedly and closed skin by using 4-0 Vicryl interruptedly and closed another two 5 mm trocar sites skin only by using 4-0 Vicryl. Then, we put the dressing on. The patient tolerated the procedure well. All the instrument, needle and sponge count were correct x2 at the end of case. The patient was transferred to recovery room in stable condition. The specimen was sent to Pathology. After the procedure, I did talk to the patient's family member about the OR finding and procedure we did, they understand. I attest to the content of the Intraoperative Record and any orders documented therein. Any exception s are noted below.
[2018-12-18] MEDS: TRIAMCINOLONE ACET 0.1% OINT 80 GM TUBE EXT SCH ×2 (14:36→20:22)
[2018-12-18] MEDS: OXYCODONE/ACETAMINOPHEN 5mg/325mg TAB PO PRN ×2 (16:44→21:10)
[2018-12-18] MEDS: PIPERACILLIN/TAZOBACTAM 4.5 GM in DEXTROSE 5% 100 ML IV SCH (20:21)
[2018-12-19] MEDS: OXYCODONE/ACETAMINOPHEN 5mg/325mg TAB PO PRN ×4 (03:02→20:04)
[2018-12-19] MEDS: PIPERACILLIN/TAZOBACTAM 4.5 GM in DEXTROSE 5% 100 ML IV SCH ×3 (04:13→20:32)
[2018-12-19 07:39] LABS: Eosinophils # (auto) 0.04 K/uL (0-0.5); Eosinophils % (auto) 0.4 %; Hematocrit (blood only) 36.1 % (37-47); Hemoglobin 12.2 g/dL (12.0-16.0); Immature Granulocytes # (auto) 0.02 K/uL (0.00-0.02); Immature Granulocytes % (auto) 0.2 %; Lymphocytes # (auto) 1.52 K/uL (1.2-3.4); Lymphocytes % (auto) 16.3 %; Mean Corpuscular Hgb Conc 33.8 g/dL (32-36); Mean Corpuscular Volume 91.6 fL (80-100); Mean Platelet Volume 11.6 fL (7.4-10.4); Monocytes # (auto) 0.73 K/uL (0.11-0.59); Monocytes % (auto) 7.8 %; Neutrophils # (auto) 7.01 K/uL (1.4-6.5); Neutrophils % (auto) 75.3 %; Platelet Count 204 K/uL (130-400); RDW Coefficient of Variation 12.9 % (11.5-14.5); RDW Standard Deviation 43.8 fL (36.4-46.3); Red Blood Count 3.94 M/uL (4.2-5.4); White Blood Count 9.32 K/uL (4.8-10.8)
[2018-12-19 08:19] LABS: Albumin Level 2.7 gm/dl (3.4-5.0); Calcium 8.9 mg/dl (8.5-10.1); Creatinine Clr Calc Pharmacy 102.6 ml/min; Est GFR (African American) 101.5; Est GFR (Non-African American) 87.6; Potassium 3.2 mmol/L (3.5-5.1)
[2018-12-19] MEDS ORDERED: POTASSIUM CHLORIDE 20 MEQ TABCR PO STA (08:27)
[2018-12-19 08:28] LABS: Albumin Globulin Ratio 0.7 (0.9-2); Bilirubin,Total 0.4 mg/dl (0.2-1); Globulin 3.7 gm/dl (2.5-4.0); Total Protein 6.4 gm/dl (6.4-8.2)
[2018-12-19] MEDS: TRIAMCINOLONE ACET 0.1% OINT 80 GM TUBE EXT SCH ×3 (08:54→20:33)
[2018-12-19] MEDS: METOPROLOL TARTRATE 50 MG TAB PO SCH (08:54)
--- NOTE | 2018-12-19 10:52 | Hospitalist Progress Note ---
Date of Service December 19, 2018 Assessment & Plan (1) Acute calculous cholecystitis: - Admitted to gen surg; s/p lap yuri on 12/18, POD#1. - Pain & nausea management per primary team. - Zosyn IV -- will need to complete course of PO abx after discharge. - CLD, advance if tolerating; d/c IV fluids. (2) Elevated blood pressure reading: - BP was elevated at admission, SBP >200; now improved after starting beta maya. - May have underlying component of HTN (has not been evaluated by PCP in 5 years) - Started Metoprolol tartrate -- will increase to 75 mg BID as BP remains elevated. - Nurse navigator will schedule appt with PCP at discharge. (3) Leukocytosis: - Related to acute cholecystitis, now resolved. - Monitor CBC qAM. (4) Elevated bilirubin: - In setting of acute cholecystitis. - Now within normal limits. (5) Fatty liver: - Encourage healthy diet, exercise. (6) Obesity: - BMI 42.5 -- encourage weight loss and healthy diet. (7) Electrolyte abnormality: - K level 3.2 -- ordered KCl 40 mEq PO. - Monitor levels qAM. (8) DVT prophylaxis: - SCDs; held pharmacologic ppx for procedure. Dispo: Will continue to follow, please call with any questions. Supervising Physician Co-Signing Physician Notes Attending Attestation - Chart reviewed, care plan d/w DESHAWN Weeks. I agree w/ the guerrero components of her documentation. POD #1 s/p lap yuri. BPs stable/acceptable w/ institution of metoprolol. Continue to titrate. Will need PCP f/u for BP issues and psoriasis. Consider outpatient sleep study in light of morbid obesity (BMI 42) and elevated BPs. Feliciano Martell MD Subjective Pt. is doing well. Complains of soreness/pain in right abdomen.Tolerating CLD, eating well. Headache now resolved. BP is well controlled with BID dosing of Metoprolol. Will need to establish care with PCP at discharge. Review of Systems Review of Systems: All systems reviewed & are unremarkable except as noted in HPI & below Constitutional: no fever, no chills, no fatigue, no weakness and no anorexia Respiratory: no cough, no dyspnea and no dyspnea on exertion Cardiovascular: no chest pain, no palpitations and no edema Gastrointestinal: + abdominal pain; no nausea, no vomiting, no constipation and no diarrhea/loose stools Genitourinary: no difficulty urinating Musculoskeletal: no back pain and no joint pain Integumentary: no non-healing lesions Allergy / Immunological: no rash Physical Exam Physical Exam: General: Resting comfortably in no apparent distress HEENT: NC/AT; PERRLA with EOMI; [place] conjunctiva, MMM. No erythema of posterior pharynx Neck: Supple and nontender Cardiac: RRR Lungs: CTA bilaterally Abdomen: Bowel normoactive X 4; Nontender to palpation Extremities: Warm. No edema present Neuro: No focal weakness Skin: No rash Results & Data Vital Signs (Past 12 Hours) Vital Signs Temp Pulse Resp BP BP Pulse Ox 12/19/18 07:07 37.0 C 70 15 143/81 H 95 12/19/18 03:29 157/90 H 12/19/18 03:27 36.6 C 71 18 157/108 H 96 12/18/18 23:36 36.8 C 71 18 131/76 95 Laboratory Results 12/19/18 12/19/18 Range/Units 07:00 07:00 WBC 9.32 (4.8-10.8) K/uL RBC 3.94 L (4.2-5.4) M/uL Hgb 12.2 (12.0-16.0) g/dL Hct 36.1 L (37-47) % MCV 91.6 (80-100) fL MCH 31.0 (25-34) pg MCHC 33.8 (32-36) g/dL RDW Std Deviation 43.8 (36.4-46.3) fL RDW Coeff of Maral 12.9 (11.5-14.5) % Plt Count 204 (130-400) K/uL MPV 11.6 H (7.4-10.4) fL Immature Gran % (Auto) 0.2 % Neut % (Auto) 75.3 % Lymph % (Auto) 16.3 % [place] % (Auto) 7.8 % Eos % (Auto) 0.4 % Baso % (Auto) 0.0 % Immature Gran # (Auto) 0.02 (0.00-0.02) K/uL Neut # (Auto) 7.01 H (1.4-6.5) K/uL Lymph # (Auto) 1.52 (1.2-3.4) K/uL [place] # (Auto) 0.73 H (0.11-0.59) K/uL Eos # (Auto) 0.04 (0-0.5) K/uL Baso # (Auto) 0.00 (0-0.2) K/uL Sodium 141 (136-145) mmol/L Potassium 3.2 L (3.5-5.1) mmol/L Chloride 106 (98-107) mmol/L Carbon Dioxide 29 (21-32) mmol/L Anion Gap 6.0 (3-11) BUN 8 (7-18) mg/dl Creatinine 0.84 (0.6-1.2) mg/dl Est Cr Clr Drug Dosing 102.6 ml/min Est GFR ( Amer) 101.5 Est GFR (Non-Af Amer) 87.6 BUN/Creatinine Ratio 10.0 (10-20) Glucose 125 H (70-99) mg/dl Calcium 8.9 (8.5-10.1) mg/dl Total Bilirubin 0.4 D (0.2-1) mg/dl AST 79 H (15-37) U/L ALT 162 H (12-78) U/L Alkaline Phosphatase 69 (45-117) U/L Total Protein 6.4 (6.4-8.2) gm/dl Albumin 2.7 L (3.4-5.0) gm/dl Globulin 3.7 (2.5-4.0) gm/dl Albumin/Globulin Ratio 0.7 L (0.9-2) PG Care Time/CCT Total # of Minutes Spent Total Time Spent with Patient: Total time spent is greater than 50% in coordination of care (as documented) at patient's floor/unit and/or counseling patient:
[2018-12-19] MEDS: DOCUSATE SODIUM 100 MG CAP PO SCH ×2 (11:02→20:33)
--- NOTE | 2018-12-19 11:28 | Surgery Progress Note ---
Date of Service December 19, 2018 Assessment & Plan (1) Acute calculous cholecystitis: POD # 1 s/p laparoscopic subtotal cholecystectomy with drain placement -vitals stable, HTN improving - afebrile - leukocytosis resolved - t. bili wnl, LFTS improving - moderate post op pain 8/10, somewhat controlled with Percocet - shanda drain with 195 cc output since OR, serosanguineous Plan: continue PO Percocet and breakthrough Morphine prn pain ambulate hallway advance diet as tolerated continue shanda drain to bulb suction repeat am labs Continue IV Abx for now, transition to oral on discharge IV Zofran prn nausea SCDs for DVT prophyalxis Dr. Schwartz has seen and examined pt, agrees with above Subjective feeling okay this morning pain still about 8/10, at incision sites, preop pain resolved took percocet with breakfast, tolerated clear liquids no n/v ambulated hallway last night urinating without difficulty no chest pain/sob/dizziness Physical Exam Constitutional: WD/WN, vitals as above no acute distress and not ill appearing Respiratory: normal respiratory effort; no respiratory distress Gastrointestinal (Abdomen): Inspection/Auscultation: + abdominal surgical drain present (serosanguineous); abdomen not distended Percussion/Palpation: + abdomen tender, + guarding and abdomen soft; abdomen not rigid Skin: no rashes, warm and dry + incision (covered with dressings) Psychiatric: A+Ox3, euthymic affect Results & Data Vital Signs (Past 12 Hours) Vital Signs Temp Pulse Resp BP BP Pulse Ox 12/19/18 07:07 37.0 C 70 15 143/81 H 95 12/19/18 03:29 157/90 H 12/19/18 03:27 36.6 C 71 18 157/108 H 96 12/18/18 23:36 36.8 C 71 18 131/76 95 Laboratory Results 12/19/18 12/19/18 Range/Units 07:00 07:00 WBC 9.32 (4.8-10.8) K/uL RBC 3.94 L (4.2-5.4) M/uL Hgb 12.2 (12.0-16.0) g/dL Hct 36.1 L (37-47) % MCV 91.6 (80-100) fL MCH 31.0 (25-34) pg MCHC 33.8 (32-36) g/dL RDW Std Deviation 43.8 (36.4-46.3) fL RDW Coeff of Maral 12.9 (11.5-14.5) % Plt Count 204 (130-400) K/uL MPV 11.6 H (7.4-10.4) fL Immature Gran % (Auto) 0.2 % Neut % (Auto) 75.3 % Lymph % (Auto) 16.3 % [place] % (Auto) 7.8 % Eos % (Auto) 0.4 % Baso % (Auto) 0.0 % Immature Gran # (Auto) 0.02 (0.00-0.02) K/uL Neut # (Auto) 7.01 H (1.4-6.5) K/uL Lymph # (Auto) 1.52 (1.2-3.4) K/uL [place] # (Auto) 0.73 H (0.11-0.59) K/uL Eos # (Auto) 0.04 (0-0.5) K/uL Baso # (Auto) 0.00 (0-0.2) K/uL Sodium 141 (136-145) mmol/L Potassium 3.2 L (3.5-5.1) mmol/L Chloride 106 (98-107) mmol/L Carbon Dioxide 29 (21-32) mmol/L Anion Gap 6.0 (3-11) BUN 8 (7-18) mg/dl Creatinine 0.84 (0.6-1.2) mg/dl Est Cr Clr Drug Dosing 102.6 ml/min Est GFR ( Amer) 101.5 Est GFR (Non-Af Amer) 87.6 BUN/Creatinine Ratio 10.0 (10-20) Glucose 125 H (70-99) mg/dl Calcium 8.9 (8.5-10.1) mg/dl Total Bilirubin 0.4 D (0.2-1) mg/dl AST 79 H (15-37) U/L ALT 162 H (12-78) U/L Alkaline Phosphatase 69 (45-117) U/L Total Protein 6.4 (6.4-8.2) gm/dl Albumin 2.7 L (3.4-5.0) gm/dl Globulin 3.7 (2.5-4.0) gm/dl Albumin/Globulin Ratio 0.7 L (0.9-2)
[2018-12-19] MEDS ORDERED: METOPROLOL TARTRATE 25 MG TAB PO ONE (12:45)
[2018-12-19] MEDS: MoRPHine SULFATE 2 MG/ML CARP IV PRN (20:46)
[2018-12-19] MEDS: METOPROLOL TARTRATE 25 MG TAB PO SCH (20:56)
[2018-12-20] MEDS: OXYCODONE/ACETAMINOPHEN 5mg/325mg TAB PO PRN (04:10)
[2018-12-20] MEDS: PIPERACILLIN/TAZOBACTAM 4.5 GM in DEXTROSE 5% 100 ML IV SCH (04:11)
[2018-12-20 07:14] LABS: Hematocrit (blood only) 34.7 % (37-47); Hemoglobin 11.7 g/dL (12.0-16.0); Mean Corpuscular Hgb Conc 33.7 g/dL (32-36); Mean Corpuscular Volume 89.9 fL (80-100); Mean Platelet Volume 11.2 fL (7.4-10.4); Platelet Count 227 K/uL (130-400); RDW Coefficient of Variation 12.9 % (11.5-14.5); RDW Standard Deviation 41.7 fL (36.4-46.3); Red Blood Count 3.86 M/uL (4.2-5.4); White Blood Count 6.56 K/uL (4.8-10.8)
[2018-12-20 07:46] LABS: Albumin Level 2.6 gm/dl (3.4-5.0); Calcium 8.9 mg/dl (8.5-10.1); Creatinine Clr Calc Pharmacy 119.7 ml/min; Est GFR (African American) 122.3; Est GFR (Non-African American) 105.5; Magnesium 1.9 mg/dl (1.8-2.4); Potassium 3.4 mmol/L (3.5-5.1)
[2018-12-20 07:49] LABS: Albumin Globulin Ratio 0.7 (0.9-2); Bilirubin,Total 0.5 mg/dl (0.2-1); Globulin 3.5 gm/dl (2.5-4.0); Total Protein 6.1 gm/dl (6.4-8.2)
[2018-12-20] MEDS: DOCUSATE SODIUM 100 MG CAP PO SCH (08:06)
[2018-12-20] MEDS: TRIAMCINOLONE ACET 0.1% OINT 80 GM TUBE EXT SCH (08:07)
[2018-12-20] MEDS: METOPROLOL TARTRATE 25 MG TAB PO SCH (08:07)
[2018-12-20] MEDS ORDERED: POTASSIUM CHLORIDE 20 MEQ TABCR PO STA (08:12)
--- NOTE | 2018-12-20 08:24 | Surgery Progress Note ---
Date of Service pt is doing better, she tolerated diet, no nausea, no vomiting,SHANDA 90ml/24h, December 20, 2018 Assessment & Plan (1) Acute calculous cholecystitis: POD # 1 s/p laparoscopic subtotal cholecystectomy with drain placement -vitals stable, HTN improving - afebrile - leukocytosis resolved - t. bili wnl, LFTS improving - moderate post op pain 8/10, somewhat controlled with Percocet - shanda drain with 195 cc output since OR, serosanguineous Plan: continue PO Percocet and breakthrough Morphine prn pain ambulate hallway advance diet as tolerated continue shanda drain to bulb suction repeat am labs Continue IV Abx for now, transition to oral on discharge IV Zofran prn nausea SCDs for DVT prophyalxis Dr. Schwartz has seen and examined pt, agrees with above 12/20/2018 8:23am doing fine, pt wants to go home today, the post -op instruction was given, F/U 1-2 weeks, Physical Exam Constitutional: WD/WN, vitals as above well developed and well nourished Neck: trachea midline, no thyromegaly Respiratory: normal respiratory effort, lungs clear to auscultation normal respiratory effort Cardiovascular: RRR, no murmur, no edema Rate/Rhythm: regular rate and regular rhythm Gastrointestinal (Abdomen): Percussion/Palpation: + abdomen tender and abdomen soft soft, slightly tenderness on incision site, all incisions intact, no redness, Musculoskeletal: no cyanosis or clubbing, extremities motor strength 5/5 Neurologic: patellar DTR's 2+ bilat, sensation intact Psychiatric: Orientation: alert and oriented x 3 Results & Data Vital Signs (Past 12 Hours) Vital Signs Temp Pulse Resp BP Pulse Ox 12/20/18 07:31 36.6 C 84 16 161/84 H 95 12/19/18 23:10 36.5 C 75 18 133/75 94 12/19/18 21:23 37.1 C 87 16 158/89 H 95 12/19/18 20:39 102 H 185/103 H
--- NOTE | 2018-12-20 12:19 | Hospitalist Progress Note ---
Date of Service December 20, 2018 Assessment & Plan (1) Acute calculous cholecystitis: - Admitted to gen surg; s/p lap yuri on 12/18, POD#2. - Pain & nausea management per primary team. - Zosyn IV -- will complete course of PO abx at discharge. - Regular diet. (2) Elevated blood pressure reading: - BP was elevated at admission, SBP >200; now improving after starting beta maya. - May have underlying component of HTN (has not been evaluated by PCP in 5 years) - Started Metoprolol tartrate -- increased to 75 mg BID on 12/19. - Will f/u with PCP on 12/27 to discuss hospital admission; also has a new pt appt with PCP on 01/30. - HR has been stable with beta maya but pt. may be candidate for diuretic therapy in future. Consider converting to HCTZ as outpt. Did not start as inpt due to operative state. (3) Leukocytosis: - Related to acute cholecystitis, now resolved. - Monitor CBC qAM. (4) Elevated bilirubin: - In setting of acute cholecystitis. - Now within normal limits. (5) Fatty liver: - Encourage healthy diet, exercise. (6) Obesity: - BMI 42.5 -- encourage weight loss and healthy diet. (7) Electrolyte abnormality: - K level 3.4 -- ordered KCl 40 mEq PO. - Monitor levels qAM. (8) DVT prophylaxis: - SCDs; held pharmacologic ppx for procedure. Dispo: Medically stable for discharge, will sign off. Has appt with PCP on 12/27/18. Prescription was provided for 2 week course of Metoprolol 75 mg BID. Supervising Physician Co-Signing Physician Notes Attending Attestation - Chart reviewed, care plan d/w DESHAWN eWeks. I agree w/ the guerrero components of her documentation. POD #2 s/p lap yuri. Doing well from surgical standpoint. BPs have certainly improved with starting of metoprolol. However the actual values are not at goal. She will need additional titration as outpatient and may even need a 2nd agent. I think it is safe to say she has essential HTN. Consider outpatient sleep study in light of morbid obesity (BMI 42) and elevated BPs. Patient has been set up with new PCP to follow her HTN. Ok from medical standpoint to d/c home today. Feliciano Martell MD Subjective Pt. is doing well. Has mild abd discomfort in RUQ. BP remains elevated, will need close follow up with PCP. Review of Systems Review of Systems: All systems reviewed & are unremarkable except as noted in HPI & below Constitutional: no fever, no chills, no fatigue, no weakness and no anorexia Respiratory: no cough, no dyspnea and no dyspnea on exertion Cardiovascular: no chest pain, no palpitations and no edema Gastrointestinal: + abdominal pain; no nausea, no vomiting and no constipation Genitourinary: no difficulty urinating Musculoskeletal: no back pain and no joint pain Allergy / Immunological: no rash Physical Exam Physical Exam: General: Resting comfortably in no apparent distress HEENT: NC/AT; PERRLA with EOMI; [place] conjunctiva, MMM. No erythema of posterior pharynx Neck: Supple and nontender Cardiac: RRR Lungs: CTA bilaterally Abdomen: Bowel normoactive X 4; Nontender to palpation Extremities: Warm. No edema present Neuro: No focal weakness Skin: No rash Results & Data Vital Signs (Past 12 Hours) Vital Signs Temp Pulse Pulse Resp BP BP Pulse Ox 12/20/18 11:07 36.6 C 82 84 16 161/84 H 157/108 H 95 12/20/18 07:31 36.6 C 84 16 161/84 H 95 Laboratory Results 12/20/18 12/20/18 Range/Units 06:40 06:40 WBC 6.56 (4.8-10.8) K/uL RBC 3.86 L (4.2-5.4) M/uL Hgb 11.7 L (12.0-16.0) g/dL Hct 34.7 L (37-47) % MCV 89.9 (80-100) fL MCH 30.3 (25-34) pg MCHC 33.7 (32-36) g/dL RDW Std Deviation 41.7 (36.4-46.3) fL RDW Coeff of Maral 12.9 (11.5-14.5) % Plt Count 227 (130-400) K/uL MPV 11.2 H (7.4-10.4) fL Sodium 141 (136-145) mmol/L Potassium 3.4 L (3.5-5.1) mmol/L Chloride 105 (98-107) mmol/L Carbon Dioxide 29 (21-32) mmol/L Anion Gap 7.0 (3-11) BUN 7 (7-18) mg/dl Creatinine 0.72 (0.6-1.2) mg/dl Est Cr Clr Drug Dosing 119.7 ml/min Est GFR ( Amer) 122.3 Est GFR (Non-Af Amer) 105.5 BUN/Creatinine Ratio 10.0 (10-20) Glucose 100 H (70-99) mg/dl Calcium 8.9 (8.5-10.1) mg/dl Magnesium 1.9 (1.8-2.4) mg/dl Total Bilirubin 0.5 (0.2-1) mg/dl AST 47 H (15-37) U/L ALT 117 H (12-78) U/L Alkaline Phosphatase 68 (45-117) U/L Total Protein 6.1 L (6.4-8.2) gm/dl Albumin 2.6 L (3.4-5.0) gm/dl Globulin 3.5 (2.5-4.0) gm/dl Albumin/Globulin Ratio 0.7 L (0.9-2) PG Care Time/CCT Total # of Minutes Spent Total Time Spent with Patient: Total time spent is greater than 50% in coordination of care (as documented) at patient's floor/unit and/or counseling patient:
--- NOTE | 2018-12-21 02:31 | Discharge Summary ---
ADMITTING DIAGNOSIS: Acute cholecystitis. DISCHARGE DIAGNOSIS: Acute cholecystitis. OPERATION: Laparoscopic cholecystectomy, subtotal cholecystectomy. SURGEON: Colin Schwartz MD DETAILS OF DISCHARGE SUMMARY: This is a 38-year-old female who presented with right upper quadrant pain. The patient had a CT and ultrasound diagnosis of acute cholecystitis and we took the patient to the OR. We did a laparoscopic subtotal cholecystectomy due to significant inflammation on the gallbladder with ASIM drainage. The patient tolerated the procedure well. The patient was transferred to the recovery room in stable condition after procedure and later on transferred to her regular floor. The patient is doing fine. She tolerated the diet. No nausea, no vomiting, no significant abdominal pain. PHYSICAL EXAMINATION: VITAL SIGNS: Temperature is 36.6, the heart rate 84, respiratory rate 16, blood pressure 161/84, O2 saturation 95% on room air. GENERAL: The patient is alert, awake, oriented x3. HEENT: With normal limitation. NEUROLOGIC: Intact. NECK: No JVD. CHEST: Bilateral lung sounds clear. HEART: Normal S1, S2. ABDOMEN: Soft. All dressings intact and no redness. No drainage and no significant tenderness on abdomen. No distention. EXTREMITIES: No edema. LABORATORY DATA: WBC 6.5, hemoglobin 11.7, total bilirubin 0.5. ASSESSMENT AND PLAN: The patient is doing fine. The patient wanted to go home today. I gave patient the postop care instructions and patient ____ ASIM drainage with her at home. I recommend after 1 week to come by my office to remove the ASIM drainage. The ASIM drainage only is 90 mL over 24 hours. The patient agreed to go home today. I also gave patient Percocet 5/325 one tab p.o. q. 6 hours p.r.n. for pain and Cipro, Flagyl for 7 days. Follow up with me in 1-2 weeks.
== END 2018-12-20 11:34 | disposition home or self-care (01) | DRG 418 ==
LOC: ED 05:35 → 3N 05:35
DX: K76.0 Fatty (change of) liver, not elsewhere classified; E66.9 Obesity, unspecified; K80.00 Calculus of gallbladder with acute cholecystitis without obstruction; Z68.41 Body mass index [BMI] 40.0-44.9, adult